=== PATIENT | female | born 1990 | race Caucasian/White ===

== ENCOUNTER 2018-08-27 12:25 | Outpatient (REF) | payer BC, SELFPAY ==
[2018-08-27 12:47] LABS: Bilirubin Small (Negative); Blood Large (Negative); Clarity Cloudy; Glucose Negative (Negative); Ketones Negative (Negative); Leukocyte Esterase Negative (Negative); Nitrite Negative (Negative); Specific Gravity >= 1.030 (1.005-1.025)
[2018-08-27 12:56] LABS: Bacteria Rare HPF (Negative); Epithelial Cells Few HPF (Negative); WBC Negative HPF (0-5)
[2018-08-27 12:57] LABS: C & S Indicated? C&S Done As Ordered; Crystals Many Amorphous HPF (Negative); Mucus Trace (Negative)
== END 2018-08-27 12:45 ==
LOC: NCHCN 12:25
PROVIDERS: PCP Internal Medicine; Visit Provider Nurse Practitioner
DX: R35.0 Frequency of micturition (principal)
CPT/HCPCS: 81003; 81015; 87086

== ENCOUNTER 2019-07-16 21:20 | Observation (INO) | payer BC, SELFPAY ==
[2019-07-16 21:30] VITALS: BP 109/75; PULSE 78; RESP 16; TEMP 37.2; O2SAT 98
[2019-07-16 22:17] LABS: Absolute Basophil Count 0.03 k/cumm (0.0-0.2); Absolute Eosinophil Count 0.35 k/cumm (0.0-0.7); Absolute Lymphocyte Count 2.59 k/cumm (1.2-3.4); Absolute Monocyte Count 0.57 k/cumm (0.11-0.7); Absolute Neutrophil Count 2.53 k/cumm (1.2-6.7); Basophils % 0.5; Eosinophils % 5.8; HCT 36.5 % (36.0-46.0); HGB 12.3 g/dL (12.0-15.5); Lymphocytes % 42.7; Mean Corp. HGB Concentration 33.7 g/dL (32.0-36.0); Mean Corpuscular Hemoglobin 29.5 pg (27.0-33.0); Mean Corpuscular Volume 87.5 fL (80-95); Mean Platelet Volume 9.8 fL (8.0-11.0); Monocytes % 9.4; Neutrophils % 41.6; Platelet Count 251 x1000/uL (130-400); RBC 4.17 m/cumm (4.00-5.20); White Blood Cell Count 6.07 k/cumm (4.4-10.8)
[2019-07-16] MEDS: Omnipaque 350 MG/ML 100 ML BTL IJ (22:26)
[2019-07-16] MEDS: Normal Saline - Diluent 50 ML VIAL IV (22:27)
[2019-07-16] MEDS: Normal Saline Flush 10 ML SYR IVP (22:31)
[2019-07-16 22:37] LABS: ALT 18 U/L (14-59); AST 11 U/L (15-37); Albumin 4.4 g/dL (3.4-5.0); Alkaline Phosphatase 37 U/L (46-116); Anion Gap 10.2 mmol/L (3-11); BUN 13 mg/dL (7-18); Bilirubin, Total 0.4 mg/dL (0.2-1.0); CO2 27.8 mmol/L (21.0-32.0); CREATININE 0.77 mg/dL (0.55-1.02); Calcium 8.3 mg/dL (8.5-10.1); Chloride 105 mmol/L (98-107); Glucose 113 mg/dL (74-106); Potassium 3.4 mmol/L (3.5-5.1); Sodium 143 mmol/L (136-145); Total Protein 7.4 g/dL (6.4-8.2)
--- NOTE | 2019-07-16 22:40 | DI.CT_ITS ---
EXAM: CT BRAIN NECK CTA CLINICAL HISTORY: facial numbness, arm weakness, vision changes TECHNIQUE: Axial CT angiography was performed with multi-slice acquisition and multi-planar and/or 3 D reconstructions. COMPARISON: No exams were available for comparison FINDINGS: CT angiography of the craniocervical region was performed with intravenous infusion of 100 cc 350. P reliminary noncontrast cranial CT shows no evidence of acute intracranial hemorrhage, mass effect, or midline shift. Orbital and temporal bone structures appear intact. Mastoid air cells and paranasal sinuses appear well aerated as visualized. Lung apices are clear. No cervical mass or adenopathy. Unremarkable appearance of the tracheal damaso ngeal structures. Aortic arch and common carotid, internal carotid, and vertebral arteries are unremarkable in appearan ce bilaterally to the level of the skull-base. Intracranially, the internal carotid arteries, vertebral arteries, and basilar artery appear intact w ith no aneurysm, dissection, or stenosis. The anterior, middle, and posterior cerebral arteries and major branches appear intact bilaterally. No evidence of stenosis, aneurysm, or dissection. IMPRESSION: Negative CTA craniocervical region.
--- NOTE | 2019-07-16 22:40 | NUR.NOTE ---
Nursing Note: Pt resting comfortably in room has just returned from CT family member at the bedside.
[2019-07-16 22:48] LABS: TSH 9.62 uIU/mL (0.36-3.74)
[2019-07-16] MEDS: Normal Saline 1,000 ML 1000 ML IV (23:03)
[2019-07-16 23:13] LABS: FREE T4 0.83 ng/dL (0.76-1.46)
--- NOTE | 2019-07-16 23:38 | DI.VRAD_ITS ---
PROCEDURE INFORMATION: Exam: CT Angiography Head With Contrast Exam date and time: 07/16/2019 10:27 PM Age: 28 years old Clinical indication: Patient HX: Right facial weakness, below right eye. Right hand and arm numbness since tonight. Patient states right arm numbness on and off for 4 months, and also black dots in vision x3 weeks ( patient has not notified pcp about these issues) TECHNIQUE: Imaging protocol: Computed tomography angiography of the head with intravenous contrast. 3D rendering: MIP and/or 3D reconstructed images were created by the technologist. Radiation optimization: All CT scans at this facility use at least one of these dose optimization techniques: automated exposure control; mA and/or kV adjustment per patient size (includes targeted exams where dose is matched to clinical indication); or iterative reconstruction. Contrast material: OMNIPAQUE 350; Contrast volume: 85 ml; Contrast route: IV; COMPARISON: No relevant prior studies available. FINDINGS: Right internal carotid artery: The intracranial segments of the right internal carotid artery appear widely patent. Right anterior cerebral artery: The right A1 segment and anterior cerebral arteries widely patent. Right middle cerebral artery: The right M1 and M2 segment as well as the distal visualized branches of the middle cerebral artery show no evidence of occlusion or significant stenosis. Right posterior cerebral artery: Unremarkable. No occlusion or significant stenosis. No aneurysm. Right vertebral artery: Unremarkable. No occlusion or significant stenosis. No aneurysm. Left internal carotid artery: The intracranial segments of the left internal carotid artery appear widely patent. Left anterior cerebral artery: The left A1 segment and anterior cerebral artery are widely patent. Left middle cerebral artery: The left M1 and M2 segments are widely patent as are the visualized distal branches of the left middle cerebral artery. Left posterior cerebral artery: Unremarkable. No occlusion or significant stenosis. No aneurysm. Left vertebral artery: Unremarkable. No occlusion or significant stenosis. No aneurysm. Basilar artery: The basilar artery supplies the superior cerebellar a posterior cerebral arteries, all of which appear widely patent. Both PICAs are seen. There is no aneurysm of the basilar artery tip. Other vasculature: Both vertebral arteries supply a normal caliber basilar artery. No intracranial aneurysms or arteriovenous malformations identified. HEAD: Other findings: IMPRESSION: Widely patent arteries of the [place] and their visualized branches. PROCEDURE INFORMATION: Exam: CT Angiography Neck With Contrast Exam date and time: 07/16/2019 10:27 PM Age: 28 years old Clinical indication: Patient HX: Right facial weakness, below right eye. Right hand and arm numbness since tonight. Patient states right arm numbness on and off for 4 months, and also black dots in vision x3 weeks ( patient has not notified pcp about these issues) TECHNIQUE: Imaging protocol: Computed tomography angiography of the neck with intravenous contrast. 3D rendering: MIP and/or 3D reconstructed images were created by the technologist. Radiation optimization: All CT scans at this facility use at least one of these dose optimization techniques: automated exposure control; mA and/or kV adjustment per patient size (includes targeted exams where dose is matched to clinical indication); or iterative reconstruction. Contrast material: OMNIPAQUE 350; Contrast volume: 85 ml; Contrast route: IV; COMPARISON: No relevant prior studies available. FINDINGS: VASCULATURE: Right common carotid artery: The right common carotid artery is normal in caliber. Right internal carotid artery: There is no stenosis at the origin of the right internal carotid artery. The cervical segment of the right internal carotid artery is widely patent and clear of calcific opacities. Right external carotid artery: There is no stenosis at the origin of the right external carotid artery. Right vertebral artery: Both vertebral arteries are widely patent and codominant. Both vertebral arteries supply the basilar artery. Left common carotid artery: The brachycephalic artery, left common carotid and left subclavian arteries RI is from the arch in that order. The left common carotid artery is widely patent. Left internal carotid artery: There is no stenosis at the origin of the left internal carotid artery. The cervical segment of the left internal carotid artery is widely patent without stenosis or calcific opacities. Left external carotid artery: The origin of the left external carotid artery is widely patent. Left vertebral artery: Unremarkable. No stenosis. No dissection or occlusion. Aorta: There is no aneurysm of the visualized segment of the aortic arch. NECK: Bones/joints: No acute fracture. Soft tissues: Normal. No significant soft tissue swelling. Lungs: The visualized lung apices show no areas of consolidation. IMPRESSION: 1. The right internal carotid artery shows 0% stenosis by NASCET criteria. 2. The left internal carotid artery shows 0% stenosis by NASCET criteria. 3. Both vertebral arteries are widely patent and codominant. COMMENT: Reference per NASCET criteria for degree of stenosis: Mild: less than 50% stenosis. Moderate: 50-69% stenosis. Severe: 70-94% stenosis. Near occlusion: 95-99% stenosis. Dictated and Authenticated by: Baltazar Rolle MD. Ordering:SIDDHARTHA Kidd MD
[2019-07-17] VITALS (16 sets, daily range): BP systolic 92–106; BP diastolic 53–70; PULSE 60–73; RESP 15–20; TEMP 36.5–37.2; O2SAT 96–99
--- NOTE | 2019-07-17 00:04 | W.ED.GENAD ---
Discharge Plan Disposition Patient Disposition: [facility] INPATIENT Condition: Stable Discharge Details Chief Complaint: FacialProb Clinical Impression: Facial numbness, Arm weakness Primary Care Provider: Wilmer Rodriguez ED Provider: Marti Woody Home Meds and New Rx's Prescriptions: No Action albuterol sulfate 8.5 GM HFA aerosol inhaler 2 puff Inhalation Q4H PRN PRNQty: 1 RF: 0 Medical Decision Making 28-year-old patient presenting to the emergency room for complaints of facial numbness which developed this evening of the right side of her face as well as pain in her right arm which progressed to weakness of her right arm. Patient reports several months of weakness in the upper extremities bilaterally. Patient reports several weeks of vision disturbances described as dark floaters noting several at a time transiently noted. Patient is concerned given the acute onset of facial numbness and obvious weakness in her right arm at this time which developed this evening while watching a movie. Patient has intended to seek medical evaluation for her previous symptoms but continues to feel her symptoms will improve however they have not. Patient denies any migraine headaches. Patient does report a history of several head injuries when she was younger. Patient denies any fevers, chills, nausea, vomiting. No malaise. Denies any upper respiratory or flulike symptoms. Denies any associated neck or back pain. On physical exam patient does have notable right arm weakness compared to the left specifically when testing with belt buckle maker strength. Patient does have an intact neurologic exam but some difficulty pounding her lower lip. Patient's speech is clear but somewhat slow. This is also noted by her who is at the bedside. Patient is an otherwise healthy person who does not have any known medical problems. Given patient's initial presentation and longevity of neurologic symptoms stroke is unlikely. Plan to check baseline labs TSH as well as CT head and neck to rule out acute abnormality, dissection of the carotids, aneurysm or mass. CT angios head and neck unremarkable for acute abnormality. Patient's labs reviewed. After discussion with the patient my ultimate concern is the possibility of MS given patient's presentation and symptomatology including weakness, visual changes and paresthesia. Reevaluation of the patient does reveal some improvement in difficulty pursing her lip and patient reports some improvement in weakness of her arm distally however proximal symptoms persist. I discussed with the patient outpatient evaluation for MS versus inpatient management. Given patient's acute onset of symptoms this evening and patient's preference is inpatient management to expedite MRI in the morning and possible neurology consult. Spoke with hospitalist who will admit this patient for further evaluation. HPI General Date/Time Provider Initiated Documentation: 07/16/19 21:55. HPI Narrative: Is a 28-year-old woman presenting to the emergency room for complaints of facial numbness which developed acutely while she was watching a movie this evening. Patient reports after development of facial numbness she did notice right arm pain which was followed by development of numbness and increasing weakness. Patient denies associated headache or dizziness. Patient denies fever, chills, nausea, vomiting or ill feeling. Patient does report over the last 3 weeks she has been concerned with visual changes. She did report many dark spots in her vision which flew through her vision. Patient has also noted the spots intermittently over the last 3 weeks. Patient has noted that for the last 3 to 4 months she has had intermittent arm weakness. 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 Patient reports she has tried to work out her arms and increase her strength however no improvement in her symptoms. Patient denies any history of similar. Patient denies any recent head injury however she does have a history of several head injuries when she was younger. She also has a history of syncopal episodes which were more frequent in her high school years. She did have thorough evaluation for syncopal episodes and no etiology of symptoms was identified. Patient denies neck pain or back pain. Denies chest pain with difficulty breathing shortness of breath or wheezing. Denies any swelling of the affected arm. No other concerns or complaints. Related Data Home Medications Medication Instructions Recorded Confirmed albuterol sulfate 2 puff INHALATION Q4H PRN PRN #1 06/06/14 12/22/17 [email or web address] Previous Rx's Medication Instructions Recorded albuterol sulfate 2 puff INHALATION Q4H PRN PRN #1 06/06/14 [email or web address] Allergies Allergy/AdvReac Type Severity Reaction Status Date / Time cephalexin monohydrate Allergy Skin Rash Unverified 12/22/17 13:34 [From Keflex] General Stated Complaint: FacialProb EV: 3 Review of Systems All systems reviewed & are unremarkable except as noted in HPI and below Constitutional Constitutional: Denies chills, Denies fatigue, Denies fever(s), Denies headache(s), Denies malaise and Reports weakness Eyes Eyes: Reports floaters and Denies eye pain ENT Ears, Nose, Mouth, and Throat: Denies vertigo, Denies dizziness, Denies headache(s) and Denies neck pain Respiratory Respiratory: Denies cough and Denies pain with cough Gastrointestinal Gastrointestinal: Denies abdominal pain, Denies diarrhea, Denies nausea and Denies vomiting Musculoskeletal Musculoskeletal: Denies abnormal gait, Denies back pain, Reports muscle weakness, Denies neck pain and Reports numbness Neurologic Neurologic: Denies abnormal gait, Denies confusion, Denies vertigo, Denies dizziness, Denies headache(s), Reports numbness and Reports weakness Psychiatric Psychiatric: Denies confusion Endocrine Endocrine: Denies fatigue [facility] Social History Smoking/Tobacco Use Status: Never Alcohol Intake: current Alcohol Intake frequency: holidays/special occasions only Drug use: Never Do you feel safe in your relationship?: Yes Exam Narrative Exam Narrative: CONST: Healthy appearing patient, in no acute distress. Well hydrated. Alert and oriented. HENMT: Head nomocephalic, normal to inspection. Atraumatic. Hearing grossly normal. External ear canal no erythema or swelling. TM normal bilaterally. Nose normal to inspection. No rhinnorhea. Normal facial exam. Oral mucosa normal. Tounge normal. Dentition normal. Normal posterior oropharynx. Uvula midline. EYES: General normal appearance. Alignment normal. Eyelids normal. Conjunctiva normal. Sclera normal. PERRL. NECK: Normal visual inspection. FROM. No lymphadenopathy. Trachea midline. No Midline tenderness. CHEST: Normal insepection of the chest. RESP: Normal respiratory effort. Speaking full sentences. No cough. No wheezing. No retractions. Clear to auscaltation. Breath sound equal and present bilaterally. CARDIO: No JVD. Normal PMI. Regular Rate. Regular Rhythm. Normal peripheral pulses. GI: Normal inspection of abdomen. No distension. Soft. Nontender. Bowel sounds present in all 4 quadrants. No rebound. No gaurding. MUSCULOSKELETAL: Normal Gait. FROM of all extremities. Distal neurovascularly intact. Sensation intact distally. SKIN: Normal. Dry. No rashes. NEURO: Alert and awake. Speech clear. Alert and oriented x 3. Speech is clear. Cranial nerves intact as tested III - XI. Normal [id number] test. No pronator drift. Normal heel-gay test. No Nystagmus. Strength intact in all extremities. Weakness of belt buckle maker strength noted of right hand compared to left. sensation intact in all extremities. PSYCH: Normal affect. Cooperative. Course Vital Signs Vital signs: Vital Signs Temperature 37.2 C 07/16/19 21:30 Pulse 78 07/16/19 21:30 Respiratory Rate 16 07/16/19 21:30 Blood Pressure 109/75 07/16/19 21:30 Pulse Oximetry 98 07/16/19 21:30 Temperature 37.2 C 07/16/19 21:30 Temperature Source Temporal Artery Scan 07/16/19 21:30 Pulse 78 07/16/19 21:30 Respiratory Rate 16 07/16/19 21:30 Respiratory Effort 07/16/19 21:35 Blood Pressure 109/75 07/16/19 21:30 Pulse Oximetry 98 07/16/19 21:30 Oxygen Delivery Method Room Air 07/16/19 21:30 Oxygen Flow Rate 0 07/16/19 21:30 Pain Level 0 07/16/19 21:35 Lab/Test Results Lab/Test Results: Laboratory Tests Range/Units 07/16/19 07/16/19 07/16/19 22:10 22:10 22:10 WBC (4.4-10.8) k/cumm 6.07 RBC (4.00-5.20) m/cumm 4.17 Hgb (12.0-15.5) g/dL 12.3 Hct (36.0-46.0) % 36.5 MCV (80-95) fL 87.5 MCH (27.0-33.0) pg 29.5 MCHC (32.0-36.0) g/dL 33.7 RDW (11.7-14.6) % 12.0 Plt Count (130-400) x1000/uL 251 MPV (8.0-11.0) fL 9.8 Immature Gran % % 0.0 Neutrophils % 41.6 Lymphocytes % 42.7 Monocytes % 9.4 Eosinophils % 5.8 Basophils % 0.5 Absolute Neutrophils (1.2-6.7) k/cumm 2.53 Absolute Lymphocytes (1.2-3.4) k/cumm 2.59 Absolute Monocytes (0.11-0.7) k/cumm 0.57 Absolute Eosinophils (0.0-0.7) k/cumm 0.35 Absolute Basophils (0.0-0.2) k/cumm 0.03 Sodium (136-145) mmol/L 143 Potassium (3.5-5.1) mmol/L 3.4 L Chloride (98-107) mmol/L 105 Carbon Dioxide (21.0-32.0) mmol/L 27.8 Anion Gap (3-11) mmol/L 10.2 BUN (7-18) mg/dL 13 Creatinine (0.55-1.02) mg/dL 0.77 Estimated GFR/1.73 m2 (mL/min/1.73m2) >= 60.00 Glucose (74-106) mg/dL 113 H Calcium (8.5-10.1) mg/dL 8.3 L Total Bilirubin (0.2-1.0) mg/dL 0.4 AST (15-37) U/L 11 L ALT (14-59) U/L 18 Alkaline Phosphatase (46-116) U/L 37 L Total Protein (6.4-8.2) g/dL 7.4 Albumin (3.4-5.0) g/dL 4.4 TSH (0.36-3.74) uIU/mL 9.62 H Free T4 (0.76-1.46) ng/dL Range/Units 07/16/19 22:10 WBC (4.4-10.8) k/cumm RBC (4.00-5.20) m/cumm Hgb (12.0-15.5) g/dL Hct (36.0-46.0) % MCV (80-95) fL MCH (27.0-33.0) pg MCHC (32.0-36.0) g/dL RDW (11.7-14.6) % Plt Count (130-400) x1000/uL MPV (8.0-11.0) fL Immature Gran % % Neutrophils % Lymphocytes % Monocytes % Eosinophils % Basophils % Absolute Neutrophils (1.2-6.7) k/cumm Absolute Lymphocytes (1.2-3.4) k/cumm Absolute Monocytes (0.11-0.7) k/cumm Absolute Eosinophils (0.0-0.7) k/cumm Absolute Basophils (0.0-0.2) k/cumm Sodium (136-145) mmol/L Potassium (3.5-5.1) mmol/L Chloride (98-107) mmol/L Carbon Dioxide (21.0-32.0) mmol/L Anion Gap (3-11) mmol/L BUN (7-18) mg/dL Creatinine (0.55-1.02) mg/dL Estimated GFR/1.73 m2 (mL/min/1.73m2) Glucose (74-106) mg/dL Calcium (8.5-10.1) mg/dL Total Bilirubin (0.2-1.0) mg/dL AST (15-37) U/L ALT (14-59) U/L Alkaline Phosphatase (46-116) U/L Total Protein (6.4-8.2) g/dL Albumin (3.4-5.0) g/dL TSH (0.36-3.74) uIU/mL Free T4 (0.76-1.46) ng/dL 0.83 POC- Test(urine) Negative
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
[2019-07-17] MEDS: Aspirin 325 MG TAB PO (01:59)
[2019-07-17 07:37] LABS: ALT 13 U/L (14-59); AST 9 U/L (15-37); Albumin 3.5 g/dL (3.4-5.0); Alkaline Phosphatase 31 U/L (46-116); BUN 9 mg/dL (7-18); Bilirubin, Total 0.4 mg/dL (0.2-1.0); C-Reactive Protein 0.06 mg/dL (0.0-0.3); CREATININE 0.76 mg/dL (0.55-1.02); Calcium 7.5 mg/dL (8.5-10.1); Chloride 109 mmol/L (98-107); Glucose 90 mg/dL (74-106); Magnesium 1.7 mg/dL (1.8-2.4); Potassium 3.9 mmol/L (3.5-5.1); Sodium 142 mmol/L (136-145); Total Protein 5.9 g/dL (6.4-8.2)
[2019-07-17] MEDS: Aspirin E.C. 81 MG TABEC PO (07:42)
[2019-07-17] MEDS: Acetaminophen 325 MG TAB PO (07:42)
[2019-07-17 08:22] LABS: ESR 4 mm/hr (0-20)
[2019-07-17 08:34] LABS: Creatine Kinase 43 U/L (26-192)
[2019-07-17 09:01] LABS: TSH 8.21 uIU/mL (0.36-3.74)
[2019-07-17 09:11] LABS: Vitamin B12 242 pg/mL (193-986)
--- NOTE | 2019-07-17 09:52 | PHARADMIT ---
Admission Pharmacy Clinical Review Right side FACIAL NEUROLOGICAL DEFICITS Code Status Full Code Current Weight Wgt-64.1 kg Renally Cleared and Narrow Therapeutic Index Meds CrCl~ 98 mL/min Meds-OK QTc Value / Action Taken none current BP Control, Fever BP-104/70 Tmax-37.2C Electrolytes reviewed Na- 142 K+3.9 Mag-1.7 Ca-7.5 DVT Prophylaxis ASA-ec Opiate Usage / Scheduled Bowel Regimen Ordered No Yes Plt/SCr for Heparin / Enoxaparin Plts-251 SCr-0.76 INR for Warfarin na H/H stable, WBC/Bands H&H- 12.3/36.5 WBC- 6.07 Antibiotic appropriateness none Cultures and Sensitivities none Surgical ABX d/c within 24 hr na DM control / Insulin Dosing BG-90 Heart Failure (Check EF%) (MARYAN's, B-Block, Diuretics) NONE IV to PO Switch No Home Meds Reviewed Yes Home Meds Not Ordered Proventil inh Comments
[2019-07-17] MEDS: Normal Saline Flush 10 ML SYR IVP (10:05)
[2019-07-17] MEDS: MAGNESIUM SULFATE 2 GM/50 ML BAG IVPB (10:06)
[2019-07-17] MEDS: Calcium Carbonate 1.5 GM TAB PO (11:00)
--- NOTE | 2019-07-17 11:38 | PDOC.CMIN ---
Care Management Initial Assess REASON FOR HOSPITALIZATION:: Right side facial neurological deficits PAST MEDICAL HISTORY/PAST SURGICAL HISTORY:: RAD, Syncopal episodes PREVIOUS FUNCTIONAL STATUS/SOCIAL/FAMILY SUPPORTS:: Ana resides in [place] with her and their children. She is independent at baseline in the community and works fulltime as an Occupational Therapist. CURRENT FUNCTIONAL STATUS:: Ana was sitting up in bed, she was pleasant in interaction and forthcoming with information. ADVANCE DIRECTIVES:: None on file at [facility] Has patient been provided with information about the portal?: No Did the patient sign up for the portal?: No CODE STATUS:: Full Code INSURANCE COVERAGE / FINANCIAL ISSUES:: BC/BS CURRENT HOME/COMMUNITY SERVICES/EQUIPMENT:: No current services or equipment. PRIMARY CARE PHYSICIAN:: Wilmer Rodriguez MD POTENTIAL DISCHARGE NEEDS:: Follow up appointment with Neurology, PCP. PATIENT/FAMILY EDUCATION NEEDS:: Review discharge instructions, discuss Ask Me Three. ANTICIPATED BARRIERS TO DISCHARGE:: None identified at this time. TRANSPORTATION:: Via private vehicle with family. PLAN:: Ana will return home when ready per MD. She will follow up with her PCP and community providers as well as her plan of care as prescribed. She will transport via private vehicle with family.
--- NOTE | 2019-07-17 12:13 | DI.MRI_ITS ---
EXAM: MR CERVICAL SPINE WO CLINICAL HISTORY: RUE weakness - ?radiculopathy. TECHNIQUE: Multiplanar multisequence MRI was performed. COMPARISON: No exams were available for comparison FINDINGS: MR examination cervical spine was performed according to the usual protocol. Posterior fossa structu res appear intact. No bony signal abnormality seen. No disc herniation identified in the cervical region. The bony spinal canal and neural foramina appe ar intact. Spinal cord is of normal diameter and shows normal signal throughout. There is mild loss of intra discal signal from C2-3 through C 6 7 consistent with mild disc degenerat ion. Minimal disc bulge at C6-7, no neural impingement. IMPRESSION: Minimal evidence of disc degeneration, multilevel. No focal abnormality seen.
--- NOTE | 2019-07-17 12:15 | DI.MRI_ITS ---
EXAM: MR BRAIN WO CLINICAL HISTORY: Right focal neurological symptoms TECHNIQUE: Multiplanar multisequence MRI of the brain was performed. COMPARISON: No exams were available for comparison FINDINGS: The ventricular system is normal in appearances. No signal abnormality identified in the brain. The orbital and temporal bone structures appears intact as does the pituitary. Diffusion weighted imaging shows No evidence of infarction. Susceptibility weighted imaging shows no evidence of intracranial hemorrhage. There is normal flow void in the [place] vasculature. IMPRESSION: Normal brain MRI
--- NOTE | 2019-07-17 14:26 | W.PM.DS.N ---
Date of service: 07/17/19 Time of Service: 14:28 DS: Diagnosis Discharge Diagnosis (1) Atypical migraine: Status: Suspected (2) Facial numbness: Status: Resolved (3) Arm weakness: Status: Resolved (4) Hypocalcemia: Status: Acute (5) Hypomagnesemia: Status: Acute (6) Vitamin B12 deficiency: Status: Acute (7) Subclinical hypothyroidism: Status: Acute Discharge Plan Disposition Patient Disposition: HOME Condition: Stable Discharge Details Chief Complaint: FacialProb Clinical Impression: Facial numbness, Arm weakness Reason For Visit: RIGHT SIDE FACIAL NEUROLOGICAL DEFICITS Admit Date/Time: 07/17/19 00:19 Admit Provider: Mitchell Sanon Attending Provider: Mitchell Sanon Primary Care Provider: Wilmer Rodriguez ED Provider: Marti Woody Hospital Course Hospital Course: Ms Cummins is a 28 year old female with PMHx of piror syncopal episodes as well as quiescent reactive airways disease who was observed on [facility] hospitalist service on 07/17/2019 after presenting to [facility] ED with sensation of right facial numbness/weakness and complaints of occasional BUE weakness on physical exertion. The patient did also report a headache. Ana was found to have hypocalcemia, hypomagnesemia, B12 deficiency. She had no arrhythmias on tele. Her MRI of the brain was negative. Her MR C-spine showed multilevel minimal evidence of disc degeneration without focal abnormality. Her symptoms resolved this morning after receiving tylenol, magnesium and calcium supplementation. At this point, Ana is being discharged home. She is asked to take an MVI, B12, calcium and magnesium supplements. Prior to her discharge, I ordered an anticholinesterase inhibitor antibody testing, which should be followed up as outpatient to ensure the patient does not have an atypical presentation of Myasthenia gravis to explain her BUE symptoms. This is unlikely to explain her headache this morning, however, and it is entirely plausible that the patient had an atypical migraine. She does seem to have evidence of subclinical hypothyroidism, which should be followed up as outpatient. Finally, she was tested for tick-borne illnesses on this admission - this should be followed by PCP. She is being referred to neurology on discharge. She is medically stable for discharge. She should follow up with her PCP within 2 weeks. Home Meds and New Rx's Prescriptions: New calcium carbonate 600 mg calcium (1,500 mg) Tablet 1.5 g PO BID Qty: 60 RF: 0 cyanocobalamin (vitamin B-12) 1,000 mcg capsule 1,000 mcg PO DAILY Qty: 30 RF: 0 Slow-Mag 71.5 mg tablet,delayed release (DR/EC) 71.5 mg PO DAILY Qty: 30 RF: 0 multivitamin Tablet 1 tab PO DAILY Qty: 30 RF: 0 Continued albuterol sulfate 8.5 GM HFA aerosol inhaler 2 puff Inhalation Q4H PRN PRNQty: 1 RF: 0 Discharge Instructions Instructions: Migraine Headache (DC) Additional Instructions: Return to the hospital with any fever, bleeding, chest pain, or shortness of breath. Drink plenty of water. Stand Alone Forms: Nursing Discharge Form Referrals: Wilmer Rodriguez MD [Primary Care Provider] - Swathi Finch MD [ [facility] STAFF PHYSICIAN] - Activity:: Activity as Tolerated Equipment/Supplies:: No Equipment Needed Diet:: As Tolerated Discharge Orders Discharge Orders: Discharge Order (Routine); Ordered 07/17/19 Ordered By: Julita Francois DS: Summary Status at Discharge Functional status at discharge: independent ambulation Overall status at discharge: patient is back to baseline Mental Status: mental status grossly normal Speech and Movement: speech and movement normal Mood: congruent mood Affect: normal affect Exam Narrative Exam Narrative: General: Very pleasant female, laying comfortably in bed, A&Ox3, no focal neurological deficits HEENT: EOMI, MMM Heart: RRR, no m/r/g Lungs: CTAB Abdomen: soft, nontender, nondistended Extremities: no e/c/c BLE's Psych Mental Status: mental status grossly normal Speech and Movement: speech and movement normal Mood: congruent mood Affect: normal affect DS: Data Vitals/I&O Vitals and I&O: Vital Signs Temperature 37.2 C 07/17/19 11:22 Temperature Source Tympanic 07/17/19 11:22 Pulse 60 07/17/19 11:22 Pulse Rhythm Regular 07/17/19 07:46 Respiratory Rate 16 07/17/19 11:22 Respiratory Effort Non-Labored 07/17/19 07:46 Respiratory Depth Normal 07/17/19 07:46 Respiratory Pattern Normal 07/17/19 07:46 Blood Pressure 99/64 L 07/17/19 11:22 Pulse Oximetry 96 07/17/19 11:22 Oxygen Delivery Method Room Air 07/17/19 11:22 Oxygen Flow Rate 0 07/17/19 11:22 Pain Level 0 07/17/19 11:22 Intake & Output 07/16/19 07/17/19 07/17/19 23:59 11:59 23:59 Intake Total 1000 / 1000 105 / 130 25 / 130 Balance 1000 / 1000 105 / 130 25 / 130 Weight 62.142 kg 64.1 kg Intake: IV 1000 / 1000 105 / 130 25 / 130 Other: Urine Appearance Clear Voiding Methods Toilet Data Completed and Pending Completed studies during hospitalization [Text1]: CT brain/cervical CTA: no evidence of acute intracranial hemorrhage, mass effect, or midline shift. Orbital and temporal bone structures appear intact. Mastoid air cells and paranasal sinuses appear well aerated as visualized. Negative CTA craniocervical region. MRI brain; Normal brain MRI MRI c-spine: Minimal evidence of disc degeneration, multilevel. No focal abnormality seen. Pending studies at discharge: Tick panel Anticholinesterase inhibitor antibodies. *TSH needs follow up Labs on day of discharge: Labs from last 24 hours 07/17/19 07/17/19 07/17/19 07:01 07:01 07:01 WBC RBC Hgb Hct MCV MCH MCHC RDW Plt Count MPV Immature Gran % Neutrophils % Lymphocytes % Monocytes % Eosinophils % Basophils % Absolute Neutrophils Absolute Lymphocytes Absolute Monocytes Absolute Eosinophils Absolute Basophils ESR 4 Sodium Potassium Chloride Carbon Dioxide Anion Gap BUN Creatinine Estimated GFR/1.73 m2 Glucose Calcium Magnesium Total Bilirubin AST ALT Alkaline Phosphatase Creatine Kinase 43 C-Reactive Protein 0.06 Total Protein Albumin Vitamin B12 242 TSH 8.21 H Free T4 Cortisol Pending A.phagocytophil DNA PCR Pending B. divergens/MO-1 PCR Pending Babesia duncani (PCR) Pending Babesia microti DNA PCR Pending Borrelia (PCR) Pending E.chaffeensis DNA (PCR) Pending E.ewingii/canis DNA PCR Pending E. muris-like DNA (PCR) Pending 07/17/19 07/16/19 07/16/19 07:01 22:10 22:10 WBC 6.07 RBC 4.17 Hgb 12.3 Hct 36.5 MCV 87.5 MCH 29.5 MCHC 33.7 RDW 12.0 Plt Count 251 MPV 9.8 Immature Gran % 0.0 Neutrophils % 41.6 Lymphocytes % 42.7 Monocytes % 9.4 Eosinophils % 5.8 Basophils % 0.5 Absolute Neutrophils 2.53 Absolute Lymphocytes 2.59 Absolute Monocytes 0.57 Absolute Eosinophils 0.35 Absolute Basophils 0.03 ESR Sodium 142 Potassium 3.9 Chloride 109 H Carbon Dioxide 25.0 Anion Gap 8.0 BUN 9 Creatinine 0.76 Estimated GFR/1.73 m2 >= 60.00 Glucose 90 Calcium 7.5 L Magnesium 1.7 L Total Bilirubin 0.4 AST 9 L ALT 13 L Alkaline Phosphatase 31 L Creatine Kinase C-Reactive Protein Total Protein 5.9 L Albumin 3.5 Vitamin B12 TSH Free T4 0.83 Cortisol A.phagocytophil DNA PCR B. divergens/MO-1 PCR Babesia duncani (PCR) Babesia microti DNA PCR Borrelia (PCR) E.chaffeensis DNA (PCR) E.ewingii/canis DNA PCR E. muris-like DNA (PCR) 07/16/19 07/16/19 22:10 22:10 WBC RBC Hgb Hct MCV MCH MCHC RDW Plt Count MPV Immature Gran % Neutrophils % Lymphocytes % Monocytes % Eosinophils % Basophils % Absolute Neutrophils Absolute Lymphocytes Absolute Monocytes Absolute Eosinophils Absolute Basophils ESR Sodium 143 Potassium 3.4 L Chloride 105 Carbon Dioxide 27.8 Anion Gap 10.2 BUN 13 Creatinine 0.77 Estimated GFR/1.73 m2 >= 60.00 Glucose 113 H Calcium 8.3 L Magnesium Total Bilirubin 0.4 AST 11 L ALT 18 Alkaline Phosphatase 37 L Creatine Kinase C-Reactive Protein Total Protein 7.4 Albumin 4.4 Vitamin B12 TSH 9.62 H Free T4 Cortisol A.phagocytophil DNA PCR B. divergens/MO-1 PCR Babesia duncani (PCR) Babesia microti DNA PCR Borrelia (PCR) E.chaffeensis DNA (PCR) E.ewingii/canis DNA PCR E. muris-like DNA (PCR) [facility] Medical History (Updated 07/17/19 @ 14:38 by Julita Francois MD) Asthma (Chronic) RAD (reactive airway disease) (Acute) Syncopal episodes (Resolved 11/02/14) Social History Smoking/Tobacco Use Status: Never Alcohol Intake: current Alcohol Intake frequency: holidays/special occasions only Drug use: Never Do you feel safe in your relationship?: Yes
--- NOTE | 2019-07-17 14:52 | CHAPLAIN ---
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 She said was feeling tingling in the right side of her face, and in her right arm yesterday. She was admitted about 2 a.m., so she said she is tired, but feeling better today. She has had several visitors today.
[2019-07-21 01:18] LABS: Anaplasma phagocytophilum Negative (Negative); B. miyamotoi PCR Negative (Negative); Babesia divergens/MO-1 Negative (Negative); Babesia duncani Negative (Negative); Babesia microti Negative (Negative); Ehrlichia chaffeensis Negative (Negative); Ehrlichia ewingii/canis Negative (Negative); Ehrlichia muris eauclairensis Negative (Negative)
== END 2019-07-17 15:42 | disposition home or self-care (01) ==
LOC: ER 07-17 00:55 → MS 07-17 01:03
PROVIDERS: Internal Medicine; Admitting Provider Family Medicine; Emergency Provider Physician Assistant; PCP Internal Medicine; Visit Provider Family Medicine
DX: G43.909 Migraine, unspecified, not intractable, without status migrainosus (principal); R20.0 Anesthesia of skin; R53.1 Weakness; E83.51 Hypocalcemia; E83.42 Hypomagnesemia; E53.8 Deficiency of other specified B group vitamins; E02 Subclinical iodine-deficiency hypothyroidism
CPT/HCPCS: 36415; 70496; 70498; 80053; 81025; 82533; 82550; 85652; 87798; 96360; 96361; 99217; 99220; 99285; 70551; 72141; 82607; 83519; 83735; 84439; 84443; 85025; 86140; 99236; G0378; J0610; J3490

== ENCOUNTER 2019-08-12 18:56 | Outpatient (REF) | payer BC, SELFPAY ==
[2019-08-12 22:44] LABS: ALT 14 U/L (14-59); AST 13 U/L (15-37); Albumin 4.3 g/dL (3.4-5.0); Alkaline Phosphatase 32 U/L (46-116); Anion Gap 8.5 mmol/L (3-11); BUN 14 mg/dL (7-18); Bilirubin, Total 0.4 mg/dL (0.2-1.0); CO2 26.5 mmol/L (21.0-32.0); CREATININE 0.77 mg/dL (0.55-1.02); Calcium 8.5 mg/dL (8.5-10.1); Chloride 104 mmol/L (98-107); FREE T4 0.99 ng/dL (0.76-1.46); Glucose 83 mg/dL (74-106); Potassium 3.7 mmol/L (3.5-5.1); Sodium 139 mmol/L (136-145); Total Protein 6.9 g/dL (6.4-8.2)
[2019-08-13 10:39] LABS: TSH 4.47 uIU/mL (0.36-3.74)
== END 2019-08-12 19:16 ==
LOC: NCHCN 18:56
PROVIDERS: PCP Internal Medicine; Visit Provider Internal Medicine
DX: E83.42 Hypomagnesemia (principal); E83.51 Hypocalcemia; E03.9 Hypothyroidism, unspecified
CPT/HCPCS: 80053; 83735; 84439; 84443

== ENCOUNTER 2019-08-24 14:00 | Outpatient (CLI) | payer BC, SELFPAY ==
[2019-08-26 08:04] LABS: COVID-19 RT-PCR Result Not Detected
== END 2019-08-24 14:20 ==
PROVIDERS: PCP Internal Medicine; Visit Provider Physician Assistant Medical
DX: Z20.828 Contact with and (suspected) exposure to other viral communicable diseases (principal); Z11.59 Encounter for screening for other viral diseases; R50.9 Fever, unspecified
CPT/HCPCS: 87449; U0003

== ENCOUNTER 2019-12-31 16:06 | Outpatient (REF) | payer BC, SELFPAY ==
[2019-12-31 21:32] LABS: FREE T4 1.07 ng/dL (0.76-1.46); TSH 3.81 uIU/mL (0.36-3.74)
== END 2019-12-31 16:26 ==
LOC: NCHCN 16:06
PROVIDERS: PCP Internal Medicine; Visit Provider Internal Medicine
DX: E03.9 Hypothyroidism, unspecified (principal)
CPT/HCPCS: 84439; 84443

== ENCOUNTER 2020-03-21 18:34 | Emergency (ER) | payer BC, SELFPAY ==
[2020-03-21 18:40] VITALS: BP 105/65; PULSE 82; RESP 16; TEMP 36.8; O2SAT 100
--- NOTE | 2020-03-21 18:41 | ED.GENADUL_ITS ---
Discharge Plan Disposition Patient Disposition: HOME Condition: Good Discharge Details Clinical Impression: Allergic reaction Primary Care Provider: Wilmer Rodriguez ED Provider: Dominique Roach Home Meds and New Rx's Prescriptions: New prednisone 20 mg tablet 40 mg PO DAILY 3 Days Qty: 6 RF: 0 Continued albuterol sulfate 8.5 GM HFA aerosol inhaler 2 puff Inhalation Q4H PRN PRNQty: 1 RF: 0 cyanocobalamin (vitamin B-12) 1,000 mcg capsule 1,000 mcg PO DAILY Qty: 30 RF: 0 Slow-Mag 71.5 mg tablet,delayed release (DR/EC) 71.5 mg PO DAILY Qty: 30 RF: 0 multivitamin Tablet 1 tab PO DAILY Qty: 30 RF: 0 Discharge Instructions Instructions: General Allergic Reaction (ED) Additional Instructions: Encourage water intake. Please try to keep your head elevated to help with swelling. You may continue with cool compresses. You may continue with Benadryl as needed for symptom control. Please take the prednisone as prescribed to help prevent recurrence of reaction. Please avoid [employer] in the future. Please follow-up with primary care for reevaluation within the next week. If you develop any breathing, shortness of breath, swelling in your mouth or throat, redness, warmth or evidence of infection please seek care urgently once again. Referrals: Wilmer Rodriguez MD [Primary Care Provider] - Discharge Data Discharge Date/Time-TO BE ENTERED AT DEPARTURE: 03/21/20 20:25 Medical Decision Making Patient is a pleasant 29 year old female presneting today with c/c of swelling to her eyes and the bridge of her nose. irineo latham taht she woke up like this this morning. She reports that she had [employer] last night and felt unusual prior to bed. States that throughout the day she has taken benadryl x 2, has been laying down. Since being more upright she has noted the swelling around the eyes to be diminished. Her main concern at this time is the pressure at the bridge of her nose. She has not noted a rash, no SOB or difficulty breathing, no swelling intraorally or in her throat. No GI upset. On exam, patient has swelling to upper lids bilaterally. Eyes are not injected, no erythema or discharge. Exam and history are most consistent with reaction. We discussed that laying down throught the day in a more dependent position may have contributed to the persistent swelling, particularly as she is much improved after being more upright. Advised she may benefit from sleeping in a more upright position tonight. Will give alternative allergy agent as the Benadrul is likely fatiguing and has not improved her symptoms. Have her in upright position and ice pack over eyes. Her history is not suggestive of anaphylaxis. We discussed utility of steroids. She states that she has been on them for similar historically and that she does not like the way she feels when on them, would prefer to hold off on this currently. Reassessed the patient. She continues to endorse discomfort and swelling between her eyes. She reports that this is not been allow her to sleep tonight and she is concerned about return to work tomorrow. At this time, she would prefer treatment with oral prednisone. Also give Tylenol and ibuprofen to help with discomfort She and I discussed expected course. Encouraged f/u with PCP. We discussed return precautions. She will continue with OTC alelrgy medications to help with symptomatic management. Will stay more upright. Advised she avoid the potential trigger of [employer]. All of her questions and concerns were addressed, she is in agreement iwth this plan. HPI General Mode of arrival: ambulatory . Date/Time Provider Initiated Documentation: 03/21/20 18:36 . Limitations to Documentation: no limitations . Information obtained by: patient and RN notes reviewed . History of Present Illness 29 year old F presents to the emergency department with the chief complaint of swelling to eyes and bridge of nose, described as moderate, with intensity rated at 5. Quality is described as aching, and is localized to the face. Patient reports no radiation. Patient started experiencing this hour(s) (woke at 0400 with swelling) and it has been constant (has been improving). other things that improve symptom(s), (being upright) Other factors that worsen symptoms (laying supine) . Patient notes no other symptoms.. Patient did receive the following treatments prior to arrival, other (benadryl) Related Data Home Medications Medication Instructions Recorded Confirmed albuterol sulfate 2 puff INHALATION Q4H PRN PRN #1 06/06/14 03/21/20 [email or web address] Slow-Mag 71.5 mg PO DAILY #30 tab 07/17/19 03/21/20 cyanocobalamin (vitamin B-12) 1,000 mcg PO DAILY #30 cap 07/17/19 03/21/20 multivitamin 1 tab PO DAILY #30 tab 07/17/19 03/21/20 prednisone 40 mg PO DAILY 3 Days #6 tab 03/21/20 Previous Rx's Medication Instructions Recorded albuterol sulfate 2 puff INHALATION Q4H PRN PRN #1 06/06/14 hfa.aer.ad Slow-Mag 71.5 mg PO DAILY #30 tab 07/17/19 cyanocobalamin (vitamin B-12) 1,000 mcg PO DAILY #30 cap 07/17/19 multivitamin 1 tab PO DAILY #30 tab 07/17/19 prednisone 40 mg PO DAILY 3 Days #6 tab 03/21/20 Allergies Allergy/AdvReac Type Severity Reaction Status Date / Time cephalexin monohydrate Allergy Skin Rash Unverified 03/21/20 18:47 [From Keflex] General EV: 3 Review of Systems Constitutional Constitutional: Reports as per HPI, Denies chills, Denies fever(s) and Denies headache(s) Eyes Eyes: Reports as per HPI (Swelling no change in vision) ENT Ears, Nose, Mouth, and Throat: Reports as per HPI and Denies headache(s) Cardiovascular Cardiovascular: Denies chest pain and Denies dyspnea Respiratory Respiratory: Reports as per HPI, Denies pain on inspiration and Denies dyspnea Gastrointestinal Gastrointestinal: Reports as per HPI and Reports abdominal pain (Has had some intermittent abdominal upset, none currently) Integumentary/Breasts Skin/Breast: Reports as per HPI, Denies pruritus and Denies rash Neurologic Neurologic: Denies headache(s) ON LICENSE OF [facility] Medical History (Updated 03/21/20 @ 20:12 by DOUG Gannon) Asthma RAD (reactive airway disease) Syncopal episodes (11/02/14) Surgical History No significant past surgical history Family History Mother Asthma Thyroid disease Father Liver cancer Daughter Asthma Social History Smoking/Tobacco Use Status: Never Alcohol Intake: current Alcohol Intake frequency: holidays/special occasions only Drug use: Never Household members: spouse Housing: house Number of Children: 2 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 relationship status?: Panel score (0-1 are the most socially isolated patients): 1 Do you feel safe in your relationship?: Yes Additional Social history: Plans to adopt 3 children summer 2019 Exam Const General: cooperative, healthy appearing, comfortable, no acute distress and well developed Nutritional Appearance: average body habitus and well nourished Orientation: alert, awake and oriented x3 HENMT Head: normal to inspection Ears: hearing grossly normal bilaterally Face and sinus: normal facial exam Mouth: oral mucosae normal, lip normal, tongue normal, oropharynx normal, moist mucous membranes, no drooling and no muffled voice Teeth and gingiva: dentition normal Throat: posterior oropharynx normal Eyes General: appearance abnormal, both eyes (swelling bilateral upper eye lids, no erythema, warmth, drainage, eye WNL) Eyes/upper lids images: 1. area of swelling. No erythema, warmth, discharge, fluctuance. Neck Neck: normal visual inspection, full ROM, no lymphadenopathy, no meningeal signs and trachea midline Resp Effort & Inspection: normal respiratory effort, able to speak in complete sentences, no respiratory distress and no use of accessory muscles Auscultation: clear to auscultation bilaterally Cardio Rate: regular rate Rhythm: regular rhythm Heart Sounds: S1 normal and S2 normal GI Palpation: soft, not rigid and nontender Percussion: normal to percussion Auscultation: normal bowel sounds Skin General skin exam: no rashes or lesions noted Neuro General: patient alert and patient awake Cognition: normal cognition Speech: speech normal Gait: normal gait Psych Appearance: grossly normal and well kempt Mental Status: mental status grossly normal Speech and Movement: speech and movement normal
[2020-03-21] MEDS: Loratidine 10 MG TAB PO (18:59)
[2020-03-21] MEDS: Famotidine 20 MG TAB PO (18:59)
[2020-03-21] MEDS: Ibuprofen 600 MG TAB PO (19:46)
[2020-03-21] MEDS: predniSONE 20 MG TAB 40 MG PO (19:46)
[2020-03-21] MEDS: Acetaminophen 500 MG TAB 1000 MG PO (19:46)
[2020-03-21 20:21] VITALS: BP 101/58; PULSE 75; RESP 20; TEMP 36.7; O2SAT 99
== END 2020-03-21 20:25 | disposition home or self-care (01) ==
PROVIDERS: Emergency Provider Physician Assistant; PCP Internal Medicine
DX: T78.40XA Allergy, unspecified, initial encounter (principal); H05.223 Edema of bilateral orbit; L53.9 Erythematous condition, unspecified
CPT/HCPCS: 99283; J7512

== ENCOUNTER 2020-04-04 16:59 | Outpatient (REF) | payer BC, SELFPAY ==
[2020-04-04 20:58] LABS: Abs Immature Grans 0.01 10^3/uL (0.0-0.06); Absolute Basophil Count 0.03 10^3/uL (0.0-0.2); Absolute Eosinophil Count 0.32 10^3/uL (0.0-0.7); Absolute Lymphocyte Count 2.34 10^3/uL (1.2-3.4); Absolute Monocyte Count 0.42 10^3/uL (0.1-0.8); Basophils % 0.4; Eosinophils % 4.3; HCT 34.8 % (36.0-46.0); HGB 11.9 g/dL (11.2-15.7); Immature Grans % 0.1; Lymphocytes % 31.5; MCH 30.3 pg (27.0-33.0); MCHC 34.2 % (32.0-36.0); MCV 88.5 fL (80-95); MPV 10.5 fL (8.0-11.0); Monocytes % 5.7; Nucleated RBC 0 %; Platelet Count 255 10^3/uL (130-400); RBC 3.93 10^6/uL (3.93-5.22); RDW 11.5 % (11.7-14.6); RDW-SD 37.2 fL; WBC 7.42 10^3/uL (4.4-10.8)
[2020-04-04 21:12] LABS: Creatine Kinase 46 U/L (26-192)
[2020-04-21 10:36] LABS: ANA Interpretation Positive (Negative)
[2020-04-21 10:39] LABS: ANA Titer Pattern 1:160 Homogeneous
== END 2020-04-04 17:19 ==
LOC: NCHCN 16:59
PROVIDERS: PCP Internal Medicine; Visit Provider Internal Medicine
DX: R21 Rash and other nonspecific skin eruption (principal)
CPT/HCPCS: 82550; 83520; 85025; 86038

== ENCOUNTER 2020-12-05 16:07 | Outpatient (REF) | payer BC, SELFPAY ==
[2020-12-05 20:31] LABS: FREE T4 0.83 ng/dL (0.76-1.46); TSH 3.64 uIU/mL (0.36-3.74)
== END 2020-12-05 16:08 | disposition home or self-care (01) ==
LOC: NCHCN 16:07
PROVIDERS: PCP Internal Medicine; Visit Provider Internal Medicine
DX: E02 Subclinical iodine-deficiency hypothyroidism (principal)
CPT/HCPCS: 84439; 84443

== ENCOUNTER 2021-12-18 19:28 | Emergency (ER) | payer BC, SELFPAY ==
[2021-12-18 19:45] VITALS: BP 106/67; PULSE 78; RESP 16; TEMP 37.1; O2SAT 100
--- NOTE | 2021-12-18 19:45 | DI.RAD_ITS ---
Exam(s) XR HAND LT LIMITED XR FINGER LT LITTLE EXAM: XR FINGER LT LITTLE and XR hand LT limited EXAM DATE/TIME: CLINICAL HISTORY: Deformity, R/O Fx. TECHNIQUE: 2D digital imaging was performed of the left finger. Five views were obtained. PA/AP, o blique, and lateral views were obtained. COMPARISON: None. FINDINGS: BONES: No acute fracture is present. No bony destructive lesion is seen. JOINTS: No dislocation is present. SOFT TISSUE: There is soft tissue swelling of the 5th finger. No radiopaque foreign body is identifi ed. IMPRESSION: No evidence of acute fracture or dislocation. DATA REPOSITORY: RADIATION DOSE DELIVERED:
--- NOTE | 2021-12-18 19:52 | W.ED.GENAD ---
Discharge Plan Disposition Patient Disposition: HOME Condition: Stable Discharge Details Clinical Impression: Dislocation of left little finger Primary Care Provider: Wilmer Rodriguez ED Provider: Elinor Logan Home Meds and New Rx's Prescriptions: No Action albuterol sulfate 8.5 GM HFA aerosol inhaler 2 puff Inhalation Q4H PRN PRNQty: 1 0RF cyanocobalamin (vitamin B-12) 1,000 mcg capsule 1,000 mcg PO DAILY Qty: 30 0RF Slow-Mag 71.5 mg tablet,delayed release (DR/EC) 71.5 mg PO DAILY Qty: 30 0RF multivitamin Tablet 1 tab PO DAILY Qty: 30 0RF Discharge Instructions Instructions: Closed Reduction (ED), Finger Dislocation (ED) Additional Instructions: Please gretchen tape fingers. No evidence of broken bones noted on x-rays tonight. Rest, ice, compression, elevation. Please take Tylenol or Ibuprofen with food every 4-6 hours as needed for pain and swelling. Swelling should go down with ice if continued concerns please follow-up with orthopedics if needed. Referrals: Yasmany Lizama MD [ [facility] STAFF PHYSICIAN] - Return if symptoms worsen Discharge Data Discharge Date/Time-TO BE ENTERED AT DEPARTURE: 12/18/21 21:36 Medical Decision Making 31-year-old female presents to ER with chief complaint of left little finger pain and deformity which occurred approximately hour prior to arrival. Patient reports that she was at a basketball game for her finger into her thigh and heard a crunch. It does appear dislocated, distal CMS is intact no other injuries noted. Patient did not take any medications prior to arrival. Does have full range of motion noted to her wrist. 1950: Imaging ordered to rule out fracture. Patient is requesting anesthesia injection prior to reduction. Patient did allow me to reduce her finger without anesthetic sensation return post reduction. Patient did complain of discomfort. Ice pack given. We will continue with imaging rule out fracture. Patient reeval she does have improved range of motion. She reports feels much better. Distal sensation intact. There is some swelling noted at the base of the digit. Discussed gretchen taping and home care RICE procedures she verbalizes understanding. This text was generated using [employer] system, please disregard any oddities of phrase or misspellings. Imaging Data Radiologic Study: Imaging: X-Ray Radiologist's impression: Views: Minimum 2 views. COMPARISON: No relevant prior studies available. FINDINGS: Bones/joints: No acute fracture or dislocation. The alignment is anatomic. Soft tissues: Soft tissue swelling is noted at the proximal aspect of the 5th digit. IMPRESSION: No acute fracture or dislocation. HPI General Mode of arrival: ambulatory. Date/Time Provider Initiated Documentation: 12/18/21 19:43. Limitations to Documentation: no limitations. Information obtained by: patient, RN notes reviewed and old records reviewed. HPI Narrative: 31-year-old female presents to ER with chief complaint of left little finger pain and deformity which occurred approximately hour prior to arrival. Patient reports that she was at a basketball game for her finger into her thigh and heard a crunch. It does appear dislocated, distal CMS is intact no other injuries noted. Patient did not take any medications prior to arrival. Does have full range of motion noted to her wrist. Past medical history includes migraine, vitamin B12 deficiency, hypomagnesemia, asthma and reactive airway disease. Related Data Home Medications Medication Instructions Recorded Confirmed albuterol sulfate 90 mcg/actuation 2 puff inhalation Q4H PRN PRN ##1 06/06/14 12/18/21 aerosol inhaler cyanocobalamin (vitamin B-12) 1,000 mcg PO DAILY #30 caps 07/17/19 12/18/21 1,000 mcg capsule magnesium chloride 71.5 mg 71.5 mg PO DAILY #30 tabs 07/17/19 12/18/21 (magnesium chloride) tablet,delayed release (Slow-Mag) multivitamin 1 tab PO DAILY #30 tabs 07/17/19 03/21/20 Previous Rx's Medication Instructions Recorded albuterol sulfate 90 mcg/actuation 2 puff inhalation Q4H PRN PRN ##1 06/06/14 aerosol inhaler cyanocobalamin (vitamin B-12) 1,000 mcg PO DAILY #30 caps 07/17/19 1,000 mcg capsule magnesium chloride 71.5 mg 71.5 mg PO DAILY #30 tabs 07/17/19 (magnesium chloride) tablet,delayed release (Slow-Mag) multivitamin 1 tab PO DAILY #30 tabs 07/17/19 Allergies Allergy/AdvReac Type Severity Reaction Status Date / Time cephalexin monohydrate Allergy Skin Rash Unverified 10/12/20 18:47 [From Keflex] General Stated Complaint: Orthopedic EV: 4 Review of Systems Musculoskeletal Musculoskeletal: Reports as per HPI, Reports deformity, Reports arthralgias and Reports joint swelling PFSH All Active Problems (Updated 12/18/21 @ 21:27 by Elinor Logan NP) Dislocation of left little finger (Acute) Encounter for screening for other viral diseases (Acute) Migraine headache with aura (Acute) Subclinical hypothyroidism (Acute) Vitamin B12 deficiency (Acute) Hypomagnesemia (Acute) Hypocalcemia (Acute) Supervision of normal (Acute 12/28/14) Medical History (Updated 12/18/21 @ 21:27 by Elinor Logan NP) Asthma RAD (reactive airway disease) Surgical History No significant past surgical history Family History Mother Asthma Thyroid disease Father Liver cancer Daughter Asthma Social History Smoking/Tobacco Use Status: Never Smoking risk assessment performed?: Yes Alcohol Intake: current Alcohol Intake frequency: holidays/special occasions only Drug use: Never Substance use type: does not use Household members: spouse Housing: house Number of Children: 2 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 relationship status?: Panel score (0-1 are the most socially isolated patients): 1 Do you feel safe at home: Yes Do you feel safe in your relationship?: Yes Additional Social history: Plans to adopt 3 children summer 2019 Exam Extrem Left upper extremity: hand Details: abnormal to inspection Details: a deformity Location: of the 5th digit, normal capillary refill, abnormal ROM of finger and swelling Course Vital Signs Vital signs: Vital Signs Temperature 37.1 C 12/18/21 19:45 Pulse 78 12/18/21 19:45 Respiratory Rate 16 12/18/21 19:45 Blood Pressure 106/67 12/18/21 19:45 Pulse Oximetry 100 12/18/21 19:45 Temperature 37.1 C 12/18/21 19:45 Temperature Source Temporal Artery Scan 12/18/21 19:45 Pulse 78 12/18/21 19:45 Respiratory Rate 16 12/18/21 19:45 Respiratory Effort Non-Labored 12/18/21 19:49 Blood Pressure 106/67 12/18/21 19:45 Blood Pressure Position Sitting 12/18/21 19:45 Pulse Oximetry 100 12/18/21 19:45 Oxygen Delivery Method Room Air 12/18/21 19:45 Oxygen Flow Rate 0 12/18/21 19:45 Pain Level 5 12/18/21 19:49 Procedures Orthopedic Joint Reduction Joint #1: Time Out Performed: Yes Side: left Joint Reduction Location: finger (5th digit) Analgesia: none Technique used: direct manipulation Post-reduction neuro exam: intact Post-reduction vascular: intact and other (Swelling noted to medial MCP) Post Reduction X-Ray Obtained: Yes Post Reduction X-Ray Results: reduced Splint Applied: Yes (Gretchen Taped) Patient Tolerated Procedure: well (C/O pain)
--- NOTE | 2021-12-18 21:19 | DI.VRAD_ITS ---
PROCEDURE INFORMATION: Exam: XR Left Finger(s) Exam date and time: 12/18/2021 8:12 PM Age: 31 years old Clinical indication: Deformity, R/O FX TECHNIQUE: Imaging protocol: Radiologic exam of the Left fingers. Views: Minimum 2 views. COMPARISON: No relevant prior studies available. FINDINGS: Bones/joints: No acute fracture or dislocation. The alignment is anatomic. Soft tissues: Soft tissue swelling is noted at the proximal aspect of the 5th digit. IMPRESSION: No acute fracture or dislocation. Dictated and Authenticated by: Priyanka Michelle MD. Ordering:NINA Aldrich MD
--- NOTE | 2021-12-18 21:19 | DI.VRAD_ITS ---
PROCEDURE INFORMATION: Exam: XR Left Hand Exam date and time: 12/18/2021 8:15 PM Age: 31 years old Clinical indication: R/O FX, 5th finger pain TECHNIQUE: Imaging protocol: Radiologic exam of the Left hand. Views: 3 or more views. COMPARISON: CR XR FINGER LT LITTLE 12/18/2021 8:12 PM FINDINGS: Bones/joints: No acute fracture or dislocation. The alignment is anatomic. Soft tissues: Soft tissue swelling is noted at the proximal aspect of the 5th digit. IMPRESSION: No acute fracture or dislocation. Dictated and Authenticated by: Priyanka Michelle MD. Ordering:NINA Aldrich MD
[2021-12-18 21:35] VITALS: BP 104/60; PULSE 78; RESP 16; TEMP 36.9; O2SAT 100
== END 2021-12-18 21:36 | disposition home or self-care (01) ==
PROVIDERS: Emergency Provider Registered Nurse Emergency; PCP Internal Medicine
DX: S63.257A Unspecified dislocation of left little finger, initial encounter (principal); X58.XXXA Exposure to other specified factors, initial encounter; Y93.67 Activity, basketball
CPT/HCPCS: 26770; 99284; 73120; 73140; 99281; J3490

== ENCOUNTER 2022-01-11 18:30 | Outpatient (REF) | payer BC, SELFPAY ==
--- NOTE | 2022-01-11 16:00 | PAPFT_PTH ---
PATIENT: Ana Cummins LOC: [facility]#:[id number] AGE/SX: 31/F ROOM: RE01/11/[address]: Priya Blum : 1990 BED: DIS: 01/11/2022 SPEC #: [id number] RECD: 01/12/22 10:12 STATUS: RHODA REBe #: [id number] WHITNEY: 01/11/22 16:[address]: Priya Blum DEPT: [facility] Cytology RECD BY: Lisbet Rios ENTERED: 01/12/22 10:13 SP TYPE: PAPFT OTHR DR: Wilmer Rodriguez Tissues: 1 - CX/ENDOCX FOR PAP SMEARS Procedures: PAP THIN PREP/UVM Screening HPV DNA PROBE Comments: [id number]
[2022-01-11 19:52] LABS: TSH (W/Ref FT4) 5.94 uIU/mL (0.36-3.74)
[2022-01-11 20:37] LABS: FREE T4 0.81 ng/dL (0.76-1.46)
[2022-01-14 11:26] LABS: HIV-1/2 Ag & Ab Screen Negative (Negative)
[2022-01-15 14:33] LABS: HCV RNA Qualitative Undetected (Undetected)
== END 2022-01-11 18:31 | disposition home or self-care (01) ==
LOC: NCHCN 18:30
PROVIDERS: PCP Internal Medicine; Visit Provider Nurse Practitioner Family
DX: Z12.4 Encounter for screening for malignant neoplasm of cervix (principal); Z11.51 Encounter for screening for human papillomavirus (HPV); Z11.4 Encounter for screening for human immunodeficiency virus [HIV]; Z11.59 Encounter for screening for other viral diseases; Z13.29 Encounter for screening for other suspected endocrine disorder
CPT/HCPCS: 87389; 87522; 88142; 84439; 84443; 87624

== ENCOUNTER 2022-05-28 17:40 | Emergency (ER) | payer BC, SELFPAY ==
[2022-05-28 17:37] VITALS: BP 102/71; PULSE 66; RESP 18; TEMP 36.2; O2SAT 100
--- NOTE | 2022-05-28 17:38 | ED.GENADUL_ITS ---
Discharge Plan Disposition Patient Disposition: Home Condition: Improving Discharge Details Clinical Impression: Abdominal pain Primary Care Provider: Wilmer Rodriguez ED Provider: Dariusz Kilpatrick Home Meds and New Rx's Prescriptions: Continued albuterol sulfate 8.5 GM HFA aerosol inhaler 2 puff Inhalation Q4H PRN PRNQty: 1 0RF cyanocobalamin (vitamin B-12) 1,000 mcg capsule 1,000 mcg PO DAILY Qty: 30 0RF Slow-Mag 71.5 mg tablet,delayed release (DR/EC) 71.5 mg PO DAILY Qty: 30 0RF Discharge Instructions Instructions: Abdominal Pain (ED) Additional Instructions: [id number] medication such as Tylenol, Motrin, stool softener as directed for symptomatic control. Plenty of fluids to avoid dehydration. Please watch for new or worsening symptoms and return to the ER for any concerns. Lastly, please contact your PCP tomorrow to discuss your ER visit, ongoing symptoms and need for outpatient reevaluation. As we discussed outpatient referral to urology may be indicated. Medical Decision Making This is a 31-year-old female who denies any abdominal surgeries, otherwise healthy, presents for sudden severe left flank, back and abdominal pain that began around 430, caused her to become nauseous, almost like she could pass out. Patient states similar episode back in November, never sought medical attention in this resolved on its own. She reports multiple less severe similar episodes. Patient has not had a bowel movement in the past 24 hours. Patient reports that her menstrual cycle ended yesterday. Without any intervention her pain is now down to a 3 or 4 out of 10. Clinically she appears well, nontoxic, comfortable, no evidence of acute abdomen. Differential is broad and includes but not excluded to pyelonephritis, UTI, renal stone, diverticulitis, constipation, ovarian cyst, extremity suspicion for torsion. Will obtain IV access, give IV Toradol, obtain routine screening laboratory values. Laboratory values do not reveal any obvious emergent process. No evidence of leukocytosis. Urinalysis reveals moderate blood, 3-5 red and white cells. Negative nitrite and negative leuk esterase. Patient reports pain is now a [address] results revealed nonobstructing bilateral renal calculi with the largest measuring 2 mm on the left. No hydronephrosis. Distal ureters obscured. Pelvic calcification on the left appears to live outside the expected course of the ureter. Trace free fluid in the deep pelvis, nonspecific. Ovaries partially obscured but normal in size. Moderate retained fecal matter in the colon. No evidence of diverticulitis or colitis. Discussed CT results with patient and family. She continues to feel well, pain 1 out of 10. We discussed her multiple findings in the CT, certainly the CT is not ideal as the distal ureter is obscured, varies partially obscured, etc. Dennis reyes does have bilateral renal calculi. Moderate constipation. Nonspecific free fluid in the deep pelvis. Nothing acute identified. We discussed [id number] medication for symptomatic control, a stool softener for her ongoing constipation, and the importance of contacting her PCP tomorrow to discuss her ER visit and need for outpatient reevaluation. Referral to urology may be indicated. Standard discharge and return precautions were provided. Patient understands, is agreeable to this plan, and has no additional questions or concerns upon discharge. This documentation was generated using [employer] system, please disregard any oddities of phrase or misspellings. Medical Records Medical records reviewed: Yes I reviewed the patient's medical records. Imaging Data Radiologic Study: Attestation: I personally reviewed and interpreted this imaging study as follows: Imaging: CT Scan Radiologist's impression: PROCEDURE INFORMATION: Exam: CT Abdomen And Pelvis Without Contrast Exam date and time: 05/28/2022 6:48 PM Age: 31 years old Clinical indication: Other: L flank pain TECHNIQUE: Imaging protocol: Computed tomography of the abdomen and pelvis without contrast. Radiation optimization: All CT scans at this facility use at least one of these dose optimization techniques: automated exposure control; mA and/or kV adjustment per patient size (includes targeted exams where dose is matched to clinical indication); or iterative reconstruction. COMPARISON: No relevant prior studies available. FINDINGS: Lungs: Lung bases clear. Liver: Grossly unremarkable unenhanced liver. Gallbladder and bile ducts: Gallbladder partially collapsed. No calcified gallstones seen. No biliary dilatation. Pancreas: Pancreas partially obscured by close apposition of adjacent structures but grossly unremarkable, as seen. Spleen: Grossly unremarkable unenhanced spleen. Adrenal glands: Normal appearing adrenal glands. Kidneys and ureters: Nonobstructing bilateral renal calculi with the largest measuring 2 mm on the left. No hydronephrosis or proximal evidence of recent stone passage. Distal ureters obscured. Pelvic calcifications on the left appear to lie outside the expected course of the distal left ureter. Stomach and bowel: No oral contrast. Stomach partially decompressed. No small bowel dilatation to suggest obstruction. Moderate retained fecal material in the colon. No evidence of diverticulitis or colitis. Appendix: Normal appendix, partially obscured distally.Intraperitoneal space: Trace fluid in the deep pelvis. No free air. Vasculature: Normal caliber abdominal aorta. Lymph nodes: No pathologically enlarged mesenteric, retroperitoneal, or pelvic sidewall lymph nodes. Urinary bladder: Urinary bladder collapsed and not well evaluated but grossly unremarkable, as seen. Reproductive: Retroverted uterus, normal in size. Normal- sized ovaries. Bones/joints: No acute fracture seen among the bones of the abdomen or pelvis. Soft tissues: Tiny fat-containing ventral hernia at the umbilicus, doubtful clinical significance. IMPRESSION: 1. Nonobstructing bilateral renal calculi with the largest measuring 2 mm on the left. No hydronephrosis or proximal evidence of recent stone passage. Distal ureters obscured. Pelvic calcifications on the left appear to lie outside the expected course of the ureter. 2. Trace fluid in the deep pelvis, nonspecific. Ovaries partially obscured but normal in size. 3. Moderate retained fecal material in the colon. No evidence of diverticulitis or colitis. Lab Data Lab results reviewed: Yes I reviewed the patient's lab results. Labs: Laboratory Tests Range/Units 05/28/22 05/28/22 05/28/22 17:45 17:45 18:19 WBC (4.4-10.8) 10^3/uL 8.99 RBC (3.93-5.22) 10^6/uL 3.97 Hgb (11.2-15.7) g/dL 11.8 Hct (36.0-46.0) % 34.8 L MCV (80-95) fL 88 MCH (27.0-33.0) pg 29.7 MCHC (32.0-36.0) % 33.9 RDW (11.7-14.6) % 11.9 Plt Count (130-400) 10^3/uL 238 MPV (8.0-11.0) fL 9.7 Immature Gran % 0.2 Neutrophils % 66.1 Lymphocytes % 23.8 Monocytes % 5.2 Eosinophils % 4.1 Basophils % 0.6 Nucleated RBC % (0.0-0.3) % 0.0 Absolute Neutrophils (1.2-6.7) 10^3/uL 5.94 Absolute Lymphocytes (1.2-3.4) 10^3/uL 2.14 Absolute Monocytes (0.1-0.8) 10^3/uL 0.47 Absolute Eosinophils (0.0-0.7) 10^3/uL 0.37 Absolute Basophils (0.0-0.2) 10^3/uL 0.05 Sodium (136-145) mmol/L 142 Potassium (3.5-5.1) mmol/L 3.7 Chloride (98-107) mmol/L 107 Carbon Dioxide (21.0-32.0) mmol/L 28.1 Anion Gap (3-11) mmol/L 6.9 BUN (7-18) mg/dL 15 Creatinine (0.55-1.02) mg/dL 0.8 Est GFR (CKD-EPI 2020) (mL/min/1.73m2) 100.96 Glucose (74-106) mg/dL 99 Calcium (8.5-10.1) mg/dL 8.7 Total Bilirubin (0.2-1.0) mg/dL 0.5 AST (15-37) U/L 11 L ALT (14-59) U/L 12 L Alkaline Phosphatase (46-116) U/L 43 L Total Protein (6.4-8.2) g/dL 7.4 Albumin (3.4-5.0) g/dL 4.2 Lipase (73-393) U/L 99 Urine Color (Yellow) Yellow Urine Clarity (Clear) Sl Cloudy Urine pH (5-8) 6.0 Ur Specific [place] (1.005-1.025) >= 1.030 H Urine Protein (Negative) mg/dL Trace H Urine Ketones (Negative) mg/dL Negative Urine Blood (Negative) Moderate H Urine Nitrite (Negative) Negative Urine Bilirubin (Negative) Small H Urine Urobilinogen (Up TO 0.2) EU/dL 1.0 H Ur Leukocyte Esterase (Negative) Negative Urine RBC (0-2) HPF 3-5 H Urine WBC (0-5) HPF 3-5 Ur Epithelial Cells (Negative) HPF Many Urine Crystals (Negative) HPF Negative Urine Bacteria (Negative) HPF Moderate Urine Casts (Negative) LPF Negative Urine Mucus (Negative) Trace Ur Culture Indicated? No/Sq. Contamination Urine Glucose (Negative) mg/dL Negative HPI General Mode of arrival: EMS . Date/Time Provider Initiated Documentation: 05/28/22 17:51 . Limitations to Documentation: no limitations . Information obtained by: patient and EMS . History of Present Illness 31 year old F presents to the emergency department with the chief complaint of L abd pain, described as moderate, with intensity rated at 4. Quality is described as aching, and is localized to the abdomen and left. Patient reports radiation to back. Patient started experiencing this hour(s) (1) and it has been other (improving). No relieving factors improve symptom(s), No exacerbating factors reported . Patient notes nausea/vomiting. Patient did receive the following treatments prior to arrival, none Related Data Home Medications Medication Instructions Recorded Confirmed albuterol sulfate 90 mcg/actuation 2 puff inhalation Q4H PRN PRN ##1 06/06/14 05/28/22 aerosol inhaler cyanocobalamin (vitamin B-12) 1,000 mcg PO DAILY #30 caps 07/17/19 05/28/22 1,000 mcg capsule magnesium chloride 71.5 mg 71.5 mg PO DAILY #30 tabs 07/17/19 05/28/22 (magnesium chloride) tablet,delayed release (Slow-Mag) Previous Rx's Medication Instructions Recorded albuterol sulfate 90 mcg/actuation 2 puff inhalation Q4H PRN PRN ##1 06/06/14 aerosol inhaler cyanocobalamin (vitamin B-12) 1,000 mcg PO DAILY #30 caps 07/17/19 1,000 mcg capsule magnesium chloride 71.5 mg 71.5 mg PO DAILY #30 tabs 07/17/19 (magnesium chloride) tablet,delayed release (Slow-Mag) Allergies Allergy/AdvReac Type Severity Reaction Status Date / Time cephalexin monohydrate Allergy Skin Rash Unverified 03/21/20 18:47 [From Keflex] General EV: 4 Review of Systems Constitutional Constitutional: Denies fever(s) Cardiovascular Cardiovascular: Denies chest pain and Denies dyspnea Respiratory Respiratory: Denies cough and Denies dyspnea Gastrointestinal Gastrointestinal: Reports abdominal pain, Reports constipation, Denies diarrhea, Reports nausea and Denies vomiting Genitourinary Genitourinary: Denies abnormal vaginal bleeding, Denies dysuria and Denies vaginal discharge Musculoskeletal Musculoskeletal: Reports back pain Integumentary/Breasts Skin/Breast: Denies rash PFSH All Active Problems Abdominal pain (Acute) Encounter for screening for other viral diseases (Acute) Migraine headache with aura (Acute) Subclinical hypothyroidism (Acute) Vitamin B12 deficiency (Acute) Hypomagnesemia (Acute) Hypocalcemia (Acute) Supervision of normal (Acute 12/28/14) Medical History Asthma RAD (reactive airway disease) Surgical History No significant past surgical history Family History Mother Asthma Thyroid disease Father Liver cancer Daughter Asthma Social History Smoking/Tobacco Use Status: Never Smoking risk assessment performed?: Yes Alcohol Intake: current Alcohol Intake frequency: holidays/special occasions only Drug use: Never Substance use type: does not use Household members: spouse Housing: house Number of Children: 2 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 relationship status?: Panel score (0-1 are the most socially isolated patients): 1 Do you feel safe at home: Yes Do you feel safe in your relationship?: Yes Exam Const General: cooperative, healthy appearing, comfortable and no acute distress Orientation: alert, awake and oriented x3 HENMT Head: normal to inspection, normocephalic and atraumatic Face and sinus: normal facial exam Mouth: moist mucous membranes Eyes Conjunctivae: conjunctivae normal Neck Neck: normal visual inspection, full ROM, trachea midline and supple Resp Effort & Inspection: normal respiratory effort and able to speak in complete sentences Auscultation: clear to auscultation bilaterally Cardio Rate: regular rate Rhythm: regular rhythm GI Inspection: normal to inspection Palpation: soft, not firm, no guarding, no pulsatile masses and tender in the LLQ (and L flank); with no rebound tenderness Auscultation: normal bowel sounds Back/Spine/Pelvis Back: CVA tenderness (L) and back tenderness (L lumbar) Skin General skin exam: no rashes or lesions noted Neuro General: patient alert, patient awake, moves all extremities and no focal motor deficits Cognition: normal cognition Speech: speech normal Gait: normal gait Motor: muscle tone normal throughout Sensory Exam: no sensory deficits noted Psych Appearance: grossly normal Mental Status: mental status grossly normal
[2022-05-28 18:01] LABS: Abs Immature Grans 0.02 10^3/uL (0.0-0.06); Absolute Basophil Count 0.05 10^3/uL (0.0-0.2); Absolute Eosinophil Count 0.37 10^3/uL (0.0-0.7); Absolute Lymphocyte Count 2.14 10^3/uL (1.2-3.4); Absolute Monocyte Count 0.47 10^3/uL (0.1-0.8); Absolute Neutrophil Count 5.94 10^3/uL (1.2-6.7); Basophils % 0.6; Eosinophils % 4.1; HCT 34.8 % (36.0-46.0); HGB 11.8 g/dL (11.2-15.7); Immature Grans % 0.2; Lymphocytes % 23.8; MCH 29.7 pg (27.0-33.0); MCHC 33.9 % (32.0-36.0); MCV 88 fL (80-95); MPV 9.7 fL (8.0-11.0); Monocytes % 5.2; Neutrophils % 66.1; Platelet Count 238 10^3/uL (130-400); RBC 3.97 10^6/uL (3.93-5.22); RDW 11.9 % (11.7-14.6); RDW-SD 38.2 fL; WBC 8.99 10^3/uL (4.4-10.8)
[2022-05-28] MEDS: Normal Saline 1,000 ML 1000 ML IV (18:03)
[2022-05-28] MEDS: Ketorolac 30 MG/ML VIAL IVP (18:06)
--- NOTE | 2022-05-28 18:15 | DI.CT_ITS ---
Exam(s) CT ABDOMEN PELVIS WO EXAM: CT ABDOMEN PELVIS WO CLINICAL HISTORY: L flank pain. TECHNIQUE: Imaging Protocol: Axial computed tomography images with coronal and sagittal reformatted images were created and reviewed CONTRAST MATERIAL: Intravenous: none Oral: None COMPARISON: CT CT BRAIN NECK CTA from 07/16/2019 FINDINGS: VISUALIZED LUNG BASES: No nodules nor pleural effusions evident. ABDOMEN: There is no ascites. LIVER: There are no obvious focal hepatic lesions evident of this noninfused study. GALLBLADDER/BILIARY: No obvious gallbladder pathology. CBD is not dilated. PANCREAS: No evidence of pancreatic mass nor dilatation of the pancreatic duct. SPLEEN: Spleen is not enlarged. No obvious intrasplenic lesions. ADRENALS: There are no significant adrenal masses. KIDNEYS:No cysts evident. There are tiny nonobstructive calculi in both kidneys,. No hydronephrosis. No hydroureter. No solid renal masses seen. ABDOMINAL AORTA: Abdominal aorta is not enlarged. LYMPH NODES: There is no retroperitoneal nor paraaortic adenopathy. ABDOMINAL WALL: No evidence of significant anterior abdominal wall nor inguinal hernia. GI: There is no evidence of bowel obstruction, free air, nor abscess. PELVIS: LYMPH NODES: There is no intrapelvic nor inguinal adenopathy. GI: No evidence of appendicitis.No evidence of sigmoid diverticulitis. URINARY BLADDER: No calculi nor obvious masses evident REPRODUCTIVE: Uterus and ovaries appear age-appropriate. There are no extraovarian adnexal masses. Tiny amount of fluid in the cul-de-sac which is probably female physiologic. OSSEOUS: No fractures. No significant osseous lesions. IMPRESSION: 1. Bilateral nonobstructive nephrolithiasis. There are few tiny calculi in both kidneys. Consider p ossibility of medullary sponge kidney. No hydronephrosis. 2. Tiny amount of fluid in the cul-de-sac which is probably female physiologic. There are no extraov ángel adnexal masses noted. RADIATION DOSE DELIVERED: 760.34mGy.cm Total DLP DATA REPOSITORY: All CT scans at this facility are submitted to the National Radiology Data Registry (NRDR) Dose Index Registry (DIR) with the [employer] (A[employer]). RADIATION OPTIMIZATION: All CT scans at this facility use at least one of these dose optimization te chniques: automated exposure control; mA and/or kV adjustment per patient size (includes targeted exa ms where dose is matched to clinical indication); or iterative reconstruction.
[2022-05-28 18:17] LABS: ALT 12 U/L (14-59); AST 11 U/L (15-37); Albumin 4.2 g/dL (3.4-5.0); Alkaline Phosphatase 43 U/L (46-116); Anion Gap 6.9 mmol/L (3-11); BUN 15 mg/dL (7-18); Bilirubin, Total 0.5 mg/dL (0.2-1.0); CO2 28.1 mmol/L (21.0-32.0); CREATININE 0.8 mg/dL (0.55-1.02); Calcium 8.7 mg/dL (8.5-10.1); Chloride 107 mmol/L (98-107); Estimated GFR 100.96 (mL/min/1.73m2); Glucose 99 mg/dL (74-106); Lipase 99 U/L (73-393); Potassium 3.7 mmol/L (3.5-5.1); Sodium 142 mmol/L (136-145); Total Protein 7.4 g/dL (6.4-8.2)
[2022-05-28 18:37] LABS: Bilirubin Small (Negative); Blood Moderate (Negative); Clarity Sl Cloudy (Clear); Glucose Negative (Negative); Ketones Negative (Negative); Leukocyte Esterase Negative (Negative); Nitrite Negative (Negative); Specific Gravity >= 1.030 (1.005-1.025)
[2022-05-28 18:47] LABS: Epithelial Cells Many HPF (Negative)
[2022-05-28 18:48] LABS: Bacteria Moderate HPF (Negative); C & S Indicated? No/Sq. Contamination; Casts Negative LPF (Negative); Crystals Negative HPF (Negative); Mucus Trace (Negative)
--- NOTE | 2022-05-28 19:29 | DI.VRAD_ITS ---
PROCEDURE INFORMATION: Exam: CT Abdomen And Pelvis Without Contrast Exam date and time: 05/28/2022 6:48 PM Age: 31 years old Clinical indication: Other: L flank pain TECHNIQUE: Imaging protocol: Computed tomography of the abdomen and pelvis without contrast. Radiation optimization: All CT scans at this facility use at least one of these dose optimization techniques: automated exposure control; mA and/or kV adjustment per patient size (includes targeted exams where dose is matched to clinical indication); or iterative reconstruction. COMPARISON: No relevant prior studies available. FINDINGS: Lungs: Lung bases clear. Liver: Grossly unremarkable unenhanced liver. Gallbladder and bile ducts: Gallbladder partially collapsed. No calcified gallstones seen. No biliary dilatation. Pancreas: Pancreas partially obscured by close apposition of adjacent structures but grossly unremarkable, as seen. Spleen: Grossly unremarkable unenhanced spleen. Adrenal glands: Normal appearing adrenal glands. Kidneys and ureters: Nonobstructing bilateral renal calculi with the largest measuring 2 mm on the left. No hydronephrosis or proximal evidence of recent stone passage. Distal ureters obscured. Pelvic calcifications on the left appear to lie outside the expected course of the distal left ureter. Stomach and bowel: No oral contrast. Stomach partially decompressed. No small bowel dilatation to suggest obstruction. Moderate retained fecal material in the colon. No evidence of diverticulitis or colitis. Appendix: Normal appendix, partially obscured distally. Intraperitoneal space: Trace fluid in the deep pelvis. No free air. Vasculature: Normal caliber abdominal aorta. Lymph nodes: No pathologically enlarged mesenteric, retroperitoneal, or pelvic sidewall lymph nodes. Urinary bladder: Urinary bladder collapsed and not well evaluated but grossly unremarkable, as seen. Reproductive: Retroverted uterus, normal in size. Normal-sized ovaries. Bones/joints: No acute fracture seen among the bones of the abdomen or pelvis. Soft tissues: Tiny fat-containing ventral hernia at the umbilicus, doubtful clinical significance. IMPRESSION: 1. Nonobstructing bilateral renal calculi with the largest measuring 2 mm on the left. No hydronephrosis or proximal evidence of recent stone passage. Distal ureters obscured. Pelvic calcifications on the left appear to lie outside the expected course of the ureter. 2. Trace fluid in the deep pelvis, nonspecific. Ovaries partially obscured but normal in size. 3. Moderate retained fecal material in the colon. No evidence of diverticulitis or colitis. Dictated and Authenticated by: John Vasquez MD. Ordering:DONALD Arzola MD
[2022-05-28 20:03] VITALS: BP 132/65; PULSE 72; RESP 16; TEMP 36.3; O2SAT 99
== END 2022-05-28 20:05 | disposition home or self-care (01) ==
PROVIDERS: Emergency Provider Physician Assistant; PCP Internal Medicine
DX: R10.9 Unspecified abdominal pain (principal); R10.814 Left lower quadrant abdominal tenderness; M54.50 Low back pain, unspecified; R11.0 Nausea; N20.0 Calculus of kidney; K59.00 Constipation, unspecified; J45.909 Unspecified asthma, uncomplicated
CPT/HCPCS: 80053; 81025; 83690; 96361; 96374; 99284; 74176; 81003; 81015; 85025; J1885

== ENCOUNTER 2023-04-17 19:57 | Emergency (ER) | payer BC, SELFPAY ==
[2023-04-17 20:01] VITALS: BP 112/74; PULSE 81; RESP 18; TEMP 36.5; O2SAT 100
[2023-04-17 20:27] LABS: Bilirubin Large (Negative); Blood Negative (Negative); Clarity Cloudy (Clear); Glucose 100 mg/dL (Negative); Ketones 15 mg/dL (Negative); Leukocyte Esterase Negative (Negative); Nitrite Positive (Negative); Specific Gravity >= 1.030 (1.005-1.025); pH 5.5 (5-8)
[2023-04-17 20:34] LABS: Bacteria Few HPF (Negative); Crystals Few Calcium Oxalate HPF (Negative); Epithelial Cells Many HPF (Negative); RBC 0-2 HPF (0-2)
[2023-04-17 20:35] LABS: C & S Indicated? No/Sq. Contamination; Casts Negative LPF (Negative); Mucus Moderate (Negative)
[2023-04-17] MEDS: Acetaminophen 325 MG TAB 650 MG PO (21:25)
[2023-04-17] MEDS: Ketorolac 15 MG/ML VIAL IVP (21:26)
--- NOTE | 2023-04-17 21:27 | ED.GENADUL_ITS ---
Discharge Plan Disposition Patient Disposition: Home Condition: Stable Discharge Details Clinical Impression: Urinary tract infection Primary Care Provider: Wilmer Rodriguez ED Provider: Marlyn Joya Home Meds and New Rx's Prescriptions: Continued albuterol sulfate 8.5 GM HFA aerosol inhaler 2 puff Inhalation Q4H PRN PRNQty: 1 0RF cyanocobalamin (vitamin B-12) 1,000 mcg capsule 1,000 mcg PO DAILY Qty: 30 0RF Slow-Mag 71.5 mg tablet,delayed release (DR/EC) 71.5 mg PO DAILY Qty: 30 0RF Discharge Instructions Instructions: Urinary Tract Infection in Women (ED) Additional Instructions: Your urinary tract infection was treated with fosfomycin which is 1 dose so there are no antibiotics needed at discharge. Push fluids to stay well-hydrated drinking at least 6 to 8 glasses of water daily You did receive a dose of pyridium, which will turn your in your bright orange, this will clear up over the next day. Referrals: Wilmer Rodriguez MD [Primary Care Provider] - Medical Decision Making 32-year-old very usual state of health who presents with lower abdominal pain in addition to bilateral back pain. Hemodynamically stable. Initially urine contaminated so a second urine obtained. Suspicious for UTI she will be treated with fosfomycin secondary to her history of reported renal stone will obtain CT for renal colic. Labs have been obtained lactic acid normal kidney function electrolytes normal white count normal H&H her exam remains benign no pain monitor department. Hemodynamically she remained stable unable to take oral intake. Medical Records Medical records reviewed: Yes I reviewed the patient's medical records. Lab Data Lab results reviewed: Yes I reviewed the patient's lab results. Lab results narrative: 04/17/23 21:11 Urine - Reflex from Ua Urine Culture - Pending Laboratory Tests Range/Units 04/17/23 04/17/23 04/17/23 20:14 20:15 21:11 WBC (4.4-10.8) 10^3/uL 8.18 RBC (3.93-5.22) 10^6/uL 4.26 Hgb (11.2-15.7) g/dL 12.8 Hct (36.0-46.0) % 37.2 MCV (80-95) fL 87 MCH (27.0-33.0) pg 30.0 MCHC (32.0-36.0) % 34.4 RDW (11.7-14.6) % 11.8 Plt Count (130-400) 10^3/uL 298 MPV (8.0-11.0) fL 9.9 Immature Gran % 0.2 Neutrophils % 66.5 Lymphocytes % 22.9 Monocytes % 6.4 Eosinophils % 3.5 Basophils % 0.5 Nucleated RBC % (0.0-0.3) % 0.0 Absolute Neutrophils (1.2-6.7) 10^3/uL 5.44 Absolute Lymphocytes (1.2-3.4) 10^3/uL 1.87 Absolute Monocytes (0.1-0.8) 10^3/uL 0.52 Absolute Eosinophils (0.0-0.7) 10^3/uL 0.29 Absolute Basophils (0.0-0.2) 10^3/uL 0.04 VBG Lactate (0.6-1.4) mmol/L Sodium (136-145) mmol/L 141 Potassium (3.5-5.1) mmol/L 3.7 Chloride (98-107) mmol/L 105 Carbon Dioxide (21.0-32.0) mmol/L 26.5 Anion Gap (3-11) mmol/L 9.5 BUN (7-18) mg/dL 15 Creatinine (0.55-1.02) mg/dL 0.9 Est GFR (CKD-EPI 2020) (mL/min/1.73m2) 87.11 Glucose (74-106) mg/dL 72 L Calcium (8.5-10.1) mg/dL 9.1 Total Bilirubin (0.2-1.0) mg/dL 0.5 AST (15-37) U/L 13 L ALT (14-59) U/L 13 L Alkaline Phosphatase (46-116) U/L 45 L Creatine Kinase (26-192) U/L 83 Total Protein (6.4-8.2) g/dL 7.8 Albumin (3.4-5.0) g/dL 4.3 Urine Color (Yellow) Brown Brown Urine Clarity (Clear) Cloudy Cloudy Urine pH (5-8) 5.5 6.0 Ur Specific [place] (1.005-1.025) >= 1.030 H >= 1.030 H Urine Protein (Negative) mg/dL 100 H 30 H Urine Ketones (Negative) mg/dL 15 H 15 H Urine Blood (Negative) Negative Negative Urine Nitrite (Negative) Positive H Negative Urine Bilirubin (Negative) Large H Moderate H Urine Urobilinogen (Up to 0.2) mg/dL 2.0 H 4.0 H Ur Leukocyte Esterase (Negative) Negative Negative Urine RBC (0-2) HPF 0-2 0-2 Urine WBC (0-5) HPF 5-10 5-10 Ur Epithelial Cells (Negative) HPF Many Few Urine Crystals (Negative) HPF Few Calcium Oxalate Rare Calcium Oxalate Urine Bacteria (Negative) HPF Few Few Urine Casts (Negative) LPF Negative Negative Urine Mucus (Negative) Moderate Trace Ur Culture Indicated? No/Sq. Contamination Yes Urine Glucose (Negative) mg/dL 100 H 100 H Range/Units 04/17/23 21:52 WBC (4.4-10.8) 10^3/uL RBC (3.93-5.22) 10^6/uL Hgb (11.2-15.7) g/dL Hct (36.0-46.0) % MCV (80-95) fL MCH (27.0-33.0) pg MCHC (32.0-36.0) % RDW (11.7-14.6) % Plt Count (130-400) 10^3/uL MPV (8.0-11.0) fL Immature Gran % Neutrophils % Lymphocytes % Monocytes % Eosinophils % Basophils % Nucleated RBC % (0.0-0.3) % Absolute Neutrophils (1.2-6.7) 10^3/uL Absolute Lymphocytes (1.2-3.4) 10^3/uL Absolute Monocytes (0.1-0.8) 10^3/uL Absolute Eosinophils (0.0-0.7) 10^3/uL Absolute Basophils (0.0-0.2) 10^3/uL VBG Lactate (0.6-1.4) mmol/L 0.8 Sodium (136-145) mmol/L Potassium (3.5-5.1) mmol/L Chloride (98-107) mmol/L Carbon Dioxide (21.0-32.0) mmol/L Anion Gap (3-11) mmol/L BUN (7-18) mg/dL Creatinine (0.55-1.02) mg/dL Est GFR (CKD-EPI 2020) (mL/min/1.73m2) Glucose (74-106) mg/dL Calcium (8.5-10.1) mg/dL Total Bilirubin (0.2-1.0) mg/dL AST (15-37) U/L ALT (14-59) U/L Alkaline Phosphatase (46-116) U/L Creatine Kinase (26-192) U/L Total Protein (6.4-8.2) g/dL Albumin (3.4-5.0) g/dL Urine Color (Yellow) Urine Clarity (Clear) Urine pH (5-8) Ur Specific [place] (1.005-1.025) Urine Protein (Negative) mg/dL Urine Ketones (Negative) mg/dL Urine Blood (Negative) Urine Nitrite (Negative) Urine Bilirubin (Negative) Urine Urobilinogen (Up to 0.2) mg/dL Ur Leukocyte Esterase (Negative) Urine RBC (0-2) HPF Urine WBC (0-5) HPF Ur Epithelial Cells (Negative) HPF Urine Crystals (Negative) HPF Urine Bacteria (Negative) HPF Urine Casts (Negative) LPF Urine Mucus (Negative) Ur Culture Indicated? Urine Glucose (Negative) mg/dL HPI General Mode of arrival: ambulatory . Date/Time Provider Initiated Documentation: 04/17/23 20:15 . Limitations to Documentation: no limitations . Information obtained by: patient . HPI Narrative: 32-year-old female patient who was at the gym today when she said she had a sudden onset of lower abdominal pain all several bilateral lower back pain. She has had no fever no chills denies any urinary complaints of frequency urgency or dysuria. She states she had a similar episode approximately 1 year ago and reportedly had ovarian cysts, renal stone with no obstruction and constipation. She reports that she does have intolerance to pasta and needed as it causes severe abdominal pain also does not milk products. Does report irregular bowel pattern with bouts of constipation Related Data Home Medications Medication Instructions Recorded Confirmed albuterol sulfate 90 mcg/actuation 2 puff inhalation Q4H PRN PRN ##1 06/06/14 05/28/22 aerosol inhaler cyanocobalamin (vitamin B-12) 1,000 mcg PO DAILY #30 caps 07/17/19 05/28/22 1,000 mcg capsule magnesium chloride 71.5 mg 71.5 mg PO DAILY #30 tabs 07/17/19 05/28/22 (magnesium chloride) tablet,delayed release (Slow-Mag) Previous Rx's Medication Instructions Recorded albuterol sulfate 90 mcg/actuation 2 puff inhalation Q4H PRN PRN ##1 06/06/14 aerosol inhaler cyanocobalamin (vitamin B-12) 1,000 mcg PO DAILY #30 caps 07/17/19 1,000 mcg capsule magnesium chloride 71.5 mg 71.5 mg PO DAILY #30 tabs 07/17/19 (magnesium chloride) tablet,delayed release (Slow-Mag) Allergies Allergy/AdvReac Type Severity Reaction Status Date / Time cephalexin monohydrate Allergy Skin Rash Unverified 03/21/20 18:47 [From [facility]] General Stated Complaint: FlankPain EV: 3 Review of Systems All systems reviewed & are unremarkable except as noted in HPI and below PFSH All Active Problems (Updated 04/17/23 @ 23:22 by Marlyn Joya NP) Urinary tract infection (Acute) Encounter for screening for other viral diseases (Acute) Migraine headache with aura (Acute) Subclinical hypothyroidism (Acute) Vitamin B12 deficiency (Acute) Hypomagnesemia (Acute) Hypocalcemia (Acute) Supervision of normal (Acute 12/28/14) Medical History (Updated 04/17/23 @ 23:22 by Marlyn Joya NP) Asthma RAD (reactive airway disease) Surgical History No significant past surgical history Family History Mother Asthma Thyroid disease Father Liver cancer Daughter Asthma Social History Smoking/Tobacco Use Status: Never Smoking risk assessment performed?: Yes Alcohol Intake: current Alcohol Intake frequency: holidays/special occasions only Drug use: Never Substance use type: does not use Household members: spouse Housing: house Number of Children: 2 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 relationship status?: Panel score (0-1 are the most socially isolated patients): 1 Do you feel safe at home: Yes Do you feel safe in your relationship?: Yes Exam Const General: cooperative, comfortable and no acute distress Nutritional Appearance: average body habitus Orientation: alert, awake and oriented x3 HENNH Head: normal to inspection, normocephalic and atraumatic Face and sinus: normal facial exam Mouth: oral mucosae normal Chest Chest: normal inspection of the chest Resp Effort & Inspection: normal respiratory effort Cardio Rate: regular rate Rhythm: regular rhythm GI Inspection: normal to inspection and distended Palpation: soft, guarding and tender in the LLQ and in the RLQ; with no rebound tenderness Skin General skin exam: no rashes or lesions noted Neuro General: patient alert, patient awake and patient oriented x3 Extrem General: normal to inspection and full ROM Psych Appearance: grossly normal Mental Status: mental status grossly normal Speech and Movement: speech and movement normal Course Vital Signs Vital signs: Vital Signs Temperature 36.5 C 04/17/23 20:01 Pulse 81 04/17/23 20:01 Respiratory Rate 18 04/17/23 20:01 Blood Pressure 112/74 04/17/23 20:01 Pulse Oximetry 100 04/17/23 20:01 Temperature 36.5 C 04/17/23 20:01 Pulse 81 04/17/23 20:01 Respiratory Rate 18 04/17/23 20:01 Respiratory Effort Normal, Non-Labored 04/17/23 20:05 Blood Pressure 112/74 04/17/23 20:01 Pulse Oximetry 100 04/17/23 20:01 Oxygen Delivery Method Room Air 04/17/23 20:01 Oxygen Flow Rate 0 04/17/23 20:01 Pain Level 9 04/17/23 20:05 Lab/Test Results Lab/Test Results: Laboratory Tests Range/Units 04/17/23 20:14 Urine Color (Yellow) Brown Urine Clarity (Clear) Cloudy Urine pH (5-8) 5.5 Ur Specific [place] (1.005-1.025) >= 1.030 H Urine Protein (Negative) mg/dL 100 H Urine Ketones (Negative) mg/dL 15 H Urine Blood (Negative) Negative Urine Nitrite (Negative) Positive H Urine Bilirubin (Negative) Large H Urine Urobilinogen (Up to 0.2) mg/dL 2.0 H Ur Leukocyte Esterase (Negative) Negative Urine RBC (0-2) HPF 0-2 Urine WBC (0-5) HPF 5-10 Ur Epithelial Cells (Negative) HPF Many Urine Crystals (Negative) HPF Few Calcium Oxalate Urine Bacteria (Negative) HPF Few Urine Casts (Negative) LPF Negative Urine Mucus (Negative) Moderate Ur Culture Indicated? No/Sq. Contamination Urine Glucose (Negative) mg/dL 100 H POC- Test(urine) Negative PAWSS Have you Been Recently Intoxicated or Drunk Within the Last 30 days?: No Have you Ever Experienced Previous Episodes of Alcohol Withdrawal?: No Have you ever Experienced Withdrawal Seizures?: No Have you ever Experienced Delirium Tremens(DT)s?: No Have you ever undergone Alcohol Rehabilitation Treatment (i.e, inpt ot outpatient treatment programs)?: No Have you ever Experienced Blackouts?: No Have you ever Combined Alcohol with other Downers within the last 90 days?: No Have you ever Combined Alcohol with any other Substance of Abuse during the last 90 days?: No Positive Blood Alcohol level on Presentation? [PCS.BAL]: No Evidence of Increased Autonomic Activity (i.e. HR>120, tremor, sweating, agitation, nausea)?: No Result: 0
[2023-04-17 21:30] LABS: Bilirubin Moderate (Negative); Blood Negative (Negative); Clarity Cloudy (Clear); Glucose 100 mg/dL (Negative); Ketones 15 mg/dL (Negative); Leukocyte Esterase Negative (Negative); Nitrite Negative (Negative); Specific Gravity >= 1.030 (1.005-1.025)
[2023-04-17] MEDS: Normal Saline 1,000 ML 1000 ML IV (21:54)
[2023-04-17 21:59] LABS: Epithelial Cells Few HPF (Negative); RBC 0-2 HPF (0-2)
[2023-04-17 22:00] LABS: Bacteria Few HPF (Negative); C & S Indicated? Yes; Casts Negative LPF (Negative); Crystals Rare Calcium Oxalate HPF (Negative); Mucus Trace (Negative)
[2023-04-17 22:02] LABS: Abs Immature Grans 0.02 10^3/uL (0.0-0.06); Absolute Basophil Count 0.04 10^3/uL (0.0-0.2); Absolute Eosinophil Count 0.29 10^3/uL (0.0-0.7); Absolute Lymphocyte Count 1.87 10^3/uL (1.2-3.4); Absolute Monocyte Count 0.52 10^3/uL (0.1-0.8); Absolute Neutrophil Count 5.44 10^3/uL (1.2-6.7); Basophils % 0.5; Eosinophils % 3.5; HCT 37.2 % (36.0-46.0); HGB 12.8 g/dL (11.2-15.7); Immature Grans % 0.2; Lymphocytes % 22.9; MCHC 34.4 % (32.0-36.0); MCV 87 fL (80-95); MPV 9.9 fL (8.0-11.0); Monocytes % 6.4; Neutrophils % 66.5; Platelet Count 298 10^3/uL (130-400); RBC 4.26 10^6/uL (3.93-5.22); RDW 11.8 % (11.7-14.6); RDW-SD 37.7 fL; WBC 8.18 10^3/uL (4.4-10.8)
[2023-04-17 22:04] LABS: Lactate 0.8 mmol/L (0.6-1.4)
--- NOTE | 2023-04-17 22:15 | DI.CT_ITS ---
Exam(s) CT RENAL COLIC WO EXAM: CT RENAL COLIC WO CLINICAL HISTORY: back pain, UTI, history renal stone. TECHNIQUE: Imaging Protocol: Axial computed tomography images with coronal and sagittal reformatted images were created and reviewed CONTRAST MATERIAL: Intravenous: none Oral: None COMPARISON: CT CT ABDOMEN PELVIS WO from 05/28/2022 FINDINGS: VISUALIZED LUNG BASES: No nodules nor pleural effusions evident. ABDOMEN: There is no ascites. LIVER: There are no obvious focal hepatic lesions evident of this noninfused study. GALLBLADDER/BILIARY: No obvious gallbladder pathology. CBD is not dilated. PANCREAS: No evidence of pancreatic mass nor dilatation of the pancreatic duct. SPLEEN: Spleen is not enlarged. No obvious intrasplenic lesions. ADRENALS: There are no significant adrenal masses. KIDNEYS:There is a tiny 1 millimeter nonobstructive calculus in the upper pole region of the left kid marco and there is a tiny 1-2 millimeter nonobstructive calculus in the right kidney. Ureters are not dilated. No calculi at level the ureterovesical junctions nor within the partially collapsed urinary bladder. No solid renal masses.. ABDOMINAL AORTA: Abdominal aorta is not enlarged. LYMPH NODES: There is no retroperitoneal nor paraaortic adenopathy. ABDOMINAL WALL: No evidence of significant anterior abdominal wall nor inguinal hernia. GI: There is no evidence of bowel obstruction, free air, nor abscess. PELVIS: LYMPH NODES: There is no intrapelvic nor inguinal adenopathy. GI: Appendix is difficult to identify as a separate structure but there is no evidence of obvious [place] endicitis.Abundant fecal material in the colon. No evidence of diverticulitis. URINARY BLADDER: No calculi nor obvious masses evident REPRODUCTIVE: Uterus and adnexal regions appear age-appropriate. There is no free fluid in the pelvi s. OSSEOUS: No significant osseous lesions. IMPRESSION: 1. Compared to the prior CT scan of May 2022 there are again noted unchanged tiny calculi in eac h kidney. Cannot exclude possibly of medullary sponge kidney. Both kidneys exhibit normal size. No perinephric streaking. No hydronephrosis no hydroureter. 2. No other findings in the abdomen and pelvis. First read by [facility]. RADIATION DOSE DELIVERED: Total DLP DATA REPOSITORY: All CT scans at this facility are submitted to the National Radiology Data Registry (NRDR) Dose Index Registry (DIR) with the [employer] (ACR). RADIATION OPTIMIZATION: All CT scans at this facility use at least one of these dose optimization te chniques: automated exposure control; mA and/or kV adjustment per patient size (includes targeted exa ms where dose is matched to clinical indication); or iterative reconstruction.
[2023-04-17 22:21] LABS: ALT 13 U/L (14-59); AST 13 U/L (15-37); Albumin 4.3 g/dL (3.4-5.0); Alkaline Phosphatase 45 U/L (46-116); Anion Gap 9.5 mmol/L (3-11); BUN 15 mg/dL (7-18); Bilirubin, Total 0.5 mg/dL (0.2-1.0); CO2 26.5 mmol/L (21.0-32.0); CREATININE 0.9 mg/dL (0.55-1.02); Calcium 9.1 mg/dL (8.5-10.1); Chloride 105 mmol/L (98-107); Creatine Kinase 83 U/L (26-192); Estimated GFR 87.11 (mL/min/1.73m2); Glucose 72 mg/dL (74-106); Potassium 3.7 mmol/L (3.5-5.1); Sodium 141 mmol/L (136-145); Total Protein 7.8 g/dL (6.4-8.2)
[2023-04-17] MEDS: Fosfomycin Tromethamine 3 GM PACKET PO (22:34)
[2023-04-17] MEDS: Phenazopyridine 200 MG TAB PO (22:34)
--- NOTE | 2023-04-17 23:20 | DI.VRAD_ITS ---
PROCEDURE INFORMATION: Exam: CT Abdomen And Pelvis Without Contrast Exam date and time: 04/17/2023 10:26 PM Age: 32 years old Clinical indication: Other: Back pain, UTI, history renal stone TECHNIQUE: Imaging protocol: Computed tomography of the abdomen and pelvis without contrast. COMPARISON: CT ABDOMEN PELVIS WO 05/28/2022 6:48 PM FINDINGS: Limitations: Paucity of intra-abdominal fat. Lungs: Mild dependent atelectasis. Liver: Grossly unremarkable unenhanced liver. Gallbladder and bile ducts: Gallbladder partially collapsed. No calcified gallstones seen. No biliary dilatation. Pancreas: Pancreas partially obscured by close apposition of adjacent structures but grossly unremarkable, as seen. Spleen: Grossly unremarkable unenhanced spleen. Adrenal glands: Adrenal glands partially obscured but grossly unremarkable, as seen. Kidneys and ureters: Faintly suggested tiny nonobstructing renal calcifications with the largest measuring less than a mm. No hydronephrosis or proximal ureterectasis. Mid-distal ureters obscured. Small left-sided pelvic calcifications, stable compared with the prior exam from May 28, 2022. Phleboliths suspected. Stomach and bowel: No oral contrast. Stomach partially decompressed. No small bowel dilatation to suggest obstruction. Normal-appearing colon. No evidence of diverticulitis or colitis. Appendix: Appendix partially obscured but normal in caliber and appearance through its visualized portion. Intraperitoneal space: No gross ascites or free air. Vasculature: Normal caliber abdominal aorta. Lymph nodes: No pathologically enlarged mesenteric, retroperitoneal, or pelvic sidewall lymph nodes. Urinary bladder: Urinary bladder partially collapsed but grossly unremarkable, as seen. Reproductive: Anteverted uterus, partially obscured but normal in size. Ovaries largely obscured and poorly evaluated. No gross adnexal mass demonstrated. Bones/joints: No acute fracture seen among the bones of the abdomen or pelvis. Soft tissues: Tiny fat-containing ventral hernia at the umbilicus, doubtful clinical significance. IMPRESSION: 1. Faint suggestion of tiny nonobstructing renal calcifications with the largest measuring less than a mm. No hydronephrosis or proximal evidence of recent stone passage. 2. No acute bowel pathology demonstrated. Dictated and Authenticated by: John Vasquez MD. Ordering:JEISON Cline MD
[2023-04-17 23:33] VITALS: BP 101/65; PULSE 79; RESP 18; TEMP 37.2; O2SAT 100
== END 2023-04-17 23:39 | disposition home or self-care (01) ==
PROVIDERS: Emergency Provider Nurse Practitioner Acute Care; PCP Internal Medicine
DX: N39.0 Urinary tract infection, site not specified (principal); Z87.442 Personal history of urinary calculi
CPT/HCPCS: 36415; 80053; 81025; 82550; 82962; 96361; 96374; 99284; 74176; 81003; 81015; 83605; 85025; 87086; J1885; J3490

== ENCOUNTER 2024-12-08 21:31 | Outpatient (REF) | payer BC, SELFPAY ==
[2024-12-08 20:57] LABS: TSH (W/Ref FT4) 3.95 uIU/mL (0.36-3.74)
== END 2024-12-08 21:32 | disposition home or self-care (01) ==
LOC: NCHCN 21:31
PROVIDERS: PCP Internal Medicine; Visit Provider Nurse Practitioner Family
DX: R94.6 Abnormal results of thyroid function studies (principal)
CPT/HCPCS: 84439; 84443

== ENCOUNTER 2025-01-07 16:39 | Outpatient (CLI) | payer BC, SELFPAY ==
[2025-01-07 22:55] LABS: CEA <0.5 ng/mL (See Note)
[2025-01-08 09:36] LABS: CA 125 10 U/mL (<30)
[2025-01-08 10:39] LABS: CA 19-9 14 U/mL (<35)
[2025-01-09 10:02] LABS: HE4 38 pmol/L (<=140)
== END 2025-01-07 16:40 | disposition home or self-care (01) ==
LOC: LBO 16:40
PROVIDERS: PCP Nurse Practitioner Family; Visit Provider Obstetrics & Gynecology
DX: N83.8 Other noninflammatory disorders of ovary, fallopian tube and broad ligament (principal)
CPT/HCPCS: 36415; 86304; 86305; 82378; 86301